=== PATIENT | male | born 1955 | race Caucasian/White ===

== ENCOUNTER → 2018-06-17 11:13 | Outpatient (CLI) | payer OTHER, SELFPAY ==
[2018-06-17 14:05] LABS: Absolute Lymphocyte Count 0.69 X10^3/ul (0.83-4.51); Absolute Neutrophil Count 12.1 X10^3/uL (2.0-7.7); Basophil# 0.01 X10^3/uL; Basophil% 0.1 % (0-1); Hematocrit 43.6 % (40-54); Hemoglobin 14.5 g/dl (13.0-16.5); Lymphocyte # 0.69 X10^3/ul (4.0); Lymphocyte % 5.2 % (19-41); Mean Corp Hgb Conc 33.3 g/gl (32-36); Mean Corpuscular Hgb 28.3 pg (27.0-32.0); Mean Corpuscular Volume 85.2 fL (80-94); Mean Platelet Vol. 11.3 fl (6.2-12.0); Monocyte# 0.36 X10^3/uL; Monocyte% 2.7 % (0-10); Neutrophil # 12.13 X10^3/uL (2.7-7.7); Neutrophil % 91.8 % (47-70); Platelet Count 271 K/mm3 (150-450); RBC Distribution Width CV 13.7 % (11.6-14.6); RBC Distribution Width SD 42.3 fl (35.1-43.9); Red Blood Count 5.12 M/mm3 (4.6-6.2); White Blood Count 13.2 K/mm3 (4.4-11.0)
[2018-06-17 14:16] LABS: AST(SGOT) 22 U/L (15-37); Alanine Aminotransfer ALT/SGPT 49 U/L (16-61); Albumin, Serum 3.9 g/dL (3.2-5.0); Alkaline Phosphatase 84 U/L (45-117); Anion Gap 12 (5-15); BUN 23 mg/dL (7-18); BUN/Creat Ratio 21.1 RATIO (10-20); Bilirubin, Direct 0.14 mg/dL (0.00-0.30); Calcium,Total 8.7 mg/dL (8.5-10.1); Chloride 99 mmol/L (98-107); Cholesterol 135 mg/dL (200); Creatinine, Serum 1.09 mg/dL (0.70-1.30); EST Glomerular Filtration Rate 73 mL/min (>60); Est Glom Filt Rate - Afr Amer 88 mL/min (>60); Globulin 3.6 g/dL (2.2-4.2); Glucose 359 mg/dL (74-106); High Density Lipoprotein 31 mg/dL; Potassium 4.2 mmol/L (3.5-5.1); Protein, Total 7.5 g/dL (6.4-8.2); Sodium Level 133 mmol/L (136-145); Triglycerides 86 mg/dL; Very Low Density Lipoprotein 17 mg/dL (5-40)
[2018-06-17 14:17] LABS: POSITIVE COUNT NO; POSITIVE DIFFERENTIAL NO; POSITIVE MORPHOLOGY NO
[2018-06-17 14:28] LABS: Microalbumin,Random Urine 6.9 mg/L (NO RANGE EST.); Microalbumin:Creatinine Ratio 14.9 mg/g CRE (<30 mg/g CRE)
[2018-06-17 22:00] LABS: Hemoglobin A1c 11.1 % (4.2-6.3)
[2018-06-23 11:34] LABS: Lead, Blood Adult 16+yrs 1 ug/dL (0-4)
== END ==
PROVIDERS: Family Provider Family Medicine; PCP Family Medicine; Visit Provider Family Medicine
DX: R91.1 Solitary pulmonary nodule (principal); E11.9 Type 2 diabetes mellitus without complications; Z77.011 Contact with and (suspected) exposure to lead
CPT/HCPCS: 36415; 71046; 80048; 80061; 80076; 82043; 82570; 83036; 83655; 85025

== ENCOUNTER 2018-11-03 08:51 | Outpatient (RCR) | payer OTHER, SELFPAY ==
--- NOTE | 2018-11-04 10:35 | HP.OTEVAL ---
Patient's Visit Information ELDER SIMPSON is a 63 year old M, referred to Occupational Therapy by Castro Lizarraga MD, with a diagnosis of disp fx of prox phalanx of left RF. Date of Evaluation: 11/03/18 Occupational Therapist: Yeni Roberto, OTR/L, CHT - Subjective Subjective: pt states he fell and broke his left RF before shimon and still has difficulty with end range stretch and strength- pt states his finger feels stiff or tight all the time- pt also states he is unable to get his wedding ring on left RF. - ROM PIP: left RF 98 right 98 DIP: left RF 55 right 65 - Strength Nutritionist Public Health: right 80# left 90# Lateral Pinch: right 18# left 18# Tripod Pinch: right 14 left 12# - Edema PIP: right RF 6.0 left 6.4 - Sensation Sensation Comments: denies - Hand/Wrist Evaluation Total Score of Pain & Functional Sections: 34 - Goals Goal:: PT will demo a increase in left RF by 10 degrees to increase composite/hook fist for use of left hand with ADLS and IADLS by d/c Goal:: pt will demo a decrease in left RF PIP edema by .5 for pt to ind. galileo wedding ring on without difficulty by d/c Goal:: pt will demo understanding of joint protection tamica. to use while performing IADLs and home mtg by d/c - Rehabilitation General Assessment: pt demo with edema of left RF limiting is ability to put his wedding ring on. Pt would benefit from skilled OT services 2x week for 2 weeks to ed. pt on edema control tamica. as well as end range stretching to decrease tightness of left RF. Rehabilitation Potential: Good - Anticipated Interventions Anticipated Interventions: A/AAROM/PROM, Strengthening, Edema Control, Triggerpoint Release, Modalities, Orthoses, Joint Protection/Energy Conservation - Visit Plan Frequency: 1-2x /Week Duration: 2 Weeks TEXT: Thank you for the opportunity to evaluate your patient. For Medicare and Medicare HMO plans, please review the plan of care and approve it. It will need to be FAXED BACK to us at [phone] for Medicare purposes. Please let me know if there are questions or concerns regarding this plan of care. Physician Signature: Date:
--- NOTE | 2018-11-09 15:45 | HP.OTDCSUM ---
HP - OT D/C Summary It has been my pleasure to treat ELDER SIMPSON under orders from Castro Lizarraga MD, for the diagnosis of disp fx of prox phalanx of left RF for a total of 1 visit(s). Please see the following information for a summary of their discharge status. - Overall Improvement % Improvement: 90 - Objective Objective/Function: pt attended 1 session following eval- pt called in to cancel remaining apts- states he is doing well and will cont with HEP. Pt D/C due to his request. - Goals Patient Goals: Regain Mobility, Decrease Pain, Decrease Swelling/Stiffness, Improve Fine Motor Skills, Use Hand/Wrist/Arm Normally Again, Be More Independent in ADLS Other: wear wedding ring Goal:: PT will demo a increase in left RF by 10 degrees to increase composite/hook fist for use of left hand with ADLS and IADLS by d/c Goal:: pt will demo a decrease in left RF PIP edema by .5 for pt to ind. galileo wedding ring on without difficulty by d/c Goal:: pt will demo understanding of joint protection tamica. to use while performing IADLs and home mtg by d/c - D/C Information If there are questions or concerns regarding this patient's occupational therapy, please fell free to call me at [phone]. Thank you for the referral of this patient. Sincerely, Yeni Roberto, OTR/L, CHT
--- OUTSIDE RECORDS SUMMARY | 2019-01-07 22:11 | XMS RPT_ITS ---
:1955 Author Organization OHIP Care Team Providers Name Role Phone UVALDO CASTELLANO (TEMITOPE) Referring Unavailable UVALDO CASTELLANO (TEMITOPE) Referring Unavailable Castro Lizarraga Attending Unavailable Castro Lizarraga Referring Unavailable Fela Adam Primary Care Unavailable Fela Adam Attending Unavailable Fela Adam Attending Unavailable Fela Adam Primary Care Unavailable PROBLEMS PROBLEMS DATE TYPE CONDITION / CODE ATTENDING STATUS SOURCE 09/14/2018 Active Unspecified NA Active [facility] injury of left [place] wrist, hand and Repository finger(s), initial encounter / S69.92XA(ICD-10) 06/21/2018 Unknown R91.1 - Solitary Fela Adam Active [facility] / R91.1(ICD-10) Hospital Repository 06/15/2018 Active Cough / NA Active [facility] R05(ICD-10) [facility] [place] Repository 01/01/2018 Active Unknown / NA Active [facility] UNK(Unknown) [facility] [place] Repository PROCEDURES PROCEDURES No Procedure Records FoundRESULTS RESULTS OT D/C SUMMARY Observed: 11/11/2018 Status: F Source: [place] 8:07 AM [facility] RE[facility] Occupational [facility] [address] [place] [address] / REHABILITATION SERVICES DISCHARGE SUMMARY MR#: [id number] Acct: [id number] Name: ELDER SIMPSON Rep #: [id number] : 1955 63 From: Yeni AKBAR/Stacey, JOURDAN Referring Dr.: Castro Lizarraga MD Status: REG RCR Eval Date: Discharge Date: HP - OT D/C Summary It has been my pleasure to treat ELDER SIMPSON under orders from Castro Lizarraga MD, for the diagnosis of disp fx of prox phalanx of left RF for a total of 1 visit(s). Please see the following information for a summary of their discharge status. - Overall Improvement % Improvement: 90 - Objective Objective/Function: pt attended 1 session following eval- pt called in to cancel remaining apts- states he is doing well and will cont with HEP. Pt D/C due to his request. - Goals Patient Goals: Regain Mobility, Decrease Pain, Decrease Swelling/Stiffness, Improve Fine Motor Skills, Use Hand/Wrist/Arm Normally Again, Be More Independent in ADLS Other: wear wedding ring Goal:: PT will demo a increase in left RF by 10 degrees to increase composite/hook fist for use of left hand with ADLS and IADLS by d/c Goal:: pt will demo a decrease in left RF PIP edema by .5 for pt to ind. galileo wedding ring on without difficulty by d/c Goal:: pt will demo understanding of joint protection tamica. to use while performing IADLs and home mtg by d/c - D/C Information If there are questions or concerns regarding this patient's occupational therapy, please fell free to call me at [phone]. Thank you for the referral of this patient. Sincerely, Yeni Roberto, SAYR/Stacey, CHT <Electronically signed by Yeni CEDEÑO CHT> 11/11/18 0807 CC: Fela Adam MD; Casrto Lizarraga MD MK Signed OT GENERAL EVALUATION Observed: 11/08/2018 Status: F Source: [place] 8:15 AM [facility] [address] [place] [address] / REHABILITATION SERVICES INITIAL EVALUATION MR#: [id number] Acct: [id number] Name: ELDER SIMPSON Rep #: [id number] : 1955 63 From: Yeni Roberto OTR/L, CHT Referring Dr.: Castro Lizarraga MD Status: REG RCR Insurance: [employer] Eval Date: SELF PAY INSURANCE Patient's Visit Information ELDER SIMPSON is a 63 year old M, referred to Occupational Therapy by Castro Lizarraga MD, with a diagnosis of disp fx of prox phalanx of left RF. Date of Evaluation: 11/03/18 Occupational Therapist: Yeni Roberto, OTR/L, CHT - Subjective Subjective: pt states he fell and broke his left RF before shimon and still has difficulty with end range stretch and strength- pt states his finger feels stiff or tight all the time- pt also states he is unable to get his wedding ring on left RF. - ROM PIP: left RF 98 right 98 DIP: left RF 55 right 65 - Strength Watch Train Assembler: right 80# left 90# Lateral Pinch: right 18# left 18# Tripod Pinch: right 14 left 12# - Edema PIP: right RF 6.0 left 6.4 - Sensation Sensation Comments: denies - Hand/Wrist Evaluation Total Score of Pain AND Functional Sections: 34 - Goals Goal:: PT will demo a increase in left RF by 10 degrees to increase composite/hook fist for use of left hand with ADLS and IADLS by d/c Goal:: pt will demo a decrease in left RF PIP edema by .5 for pt to ind. galileo wedding ring on without difficulty by d/c Goal:: pt will demo understanding of joint protection tamica. to use while performing IADLs and home mtg by d/c - Rehabilitation General Assessment: pt demo with edema of left RF limiting is ability to put his wedding ring on. Pt would benefit from skilled OT services 2x week for 2 weeks to ed. pt on edema control tamica. as well as end range stretching to decrease tightness of left RF. Rehabilitation Potential: Good - Anticipated Interventions Anticipated Interventions: A/AAROM/PROM, Strengthening, Edema Control, Triggerpoint Release, Modalities, Orthoses, Joint Protection/Energy Conservation - Visit Plan Frequency: 1-2x /Week Duration: 2 Weeks TEXT: Thank you for the opportunity to evaluate your patient. For Medicare and Medicare HMO plans, please review the plan of care and approve it. It will need to be FAXED BACK to us at [phone] for Medicare purposes. Please let me know if there are questions or concerns regarding this plan of care. Physician Signature: Date: <Electronically signed by Yeni CEDEÑO CHT> 11/08/18 0815 CC: Fela Adam MD; Castro Lizarraga MD MK Signed For Medicare only, by signing this I certify the plan of care. Physicians Signature Date PROGRESS Observed: 09/14/2018 Status: COMPLETED Source: [place] 1:15 PM [facility] [place] REPOSITORY O ID: [id number] Author: Uvaldo Castellano (Pa) Service: (none) Author Type: Physician Social Media Analyst Type: Progress Notes Filed: 09/14/2018 1:28 PM Note Text: Subjective HPI Patient presents with left ring finger injury. He states he had tripped yesterday and he went to catch himself and he hit his fifth digit. It's been bruised and swollen Sensor came in for evaluation. No numbness or tingling. No problems with the hands in the past. Review of Systems Musculoskeletal: Left ring finger injury All other systems reviewed and are negative. No past medical history on file. Current Outpatient Prescriptions: albuterol HFA (PROAIR HFA) 90 mcg/actuation inhaler Inhale 2 Puffs as instructed every 6 hours as needed. Disp: 1 Inhaler Rfl: 0 liraglutide (VICTOZA 2-SHARMIN) 0.6 mg/0.1 mL (18 mg/3 mL) pnij Inject subcutaneously once daily. Disp: Rfl: naproxen (NAPROSYN) 500 mg tablet Take 1 tablet by mouth twice daily with meals. Take with food. Disp: 30 tablet Rfl: 0 METFORMIN HCL (METFORMIN ORAL) Take by mouth. Disp: Rfl: SIMVASTATIN ORAL Take by mouth. Disp: Rfl: LISINOPRIL ORAL Take by mouth. Disp: Rfl: aspirin, enteric coated (ASPIRIN, ENTERIC COATED) 81 mg EC tablet Take 81 mg by mouth once daily. Disp: Rfl: benzonatate (TESSALON PERLES) 100 mg capsule Take 2 capsules by mouth three times daily as needed. (Patient not taking: Reported on 09/14/2018 ) Disp: 30 capsule Rfl: 0 No current facility-administered medications for this visit. No past surgical history on file. No family history on file. Social History Substance Use Topics - Smoking status: Never Smoker - Smokeless tobacco: Never Used - Alcohol use Not on file BP 130/82 Pulse 74 Temp 36.6 ?C (97.8 ?F) (Tympanic) Resp 16 Wt 98.9 kg (218 lb) Objective Physical Exam Constitutional: He is oriented to person, place, and time. Musculoskeletal: Exam of the left fourth digit reveals bruising and swelling to the proximal interphalangeal joint. He has limited range of motion due to pain. Normal distal sensation. No tenderness of the MCP. Neurological: He is alert and oriented to person, place, and time. Skin: Skin is warm and dry. Psychiatric: Affect and judgment normal. Nursing note and vitals reviewed. ASSESSMENT/PLAN: 1. Finger injury, left, initial encounter - ICD9: 959.5, ICD10: S69.92XA (primary diagnosis) - XR DIGIT GENERAL 3V FRONTAL/LAT/OBL LT 2. Closed avulsion fracture of middle phalanx of finger, initial encounter - ICD9: 816.01, ICD10: S62.629A Patient has an avulsion fracture of the middle phalanx of the left fourth digit. I did place him in an aluminum finger splint with vitaliy tape and instructed him to follow up with or so. He was scheduled for next week. Instructed to rest, ice, ibuprofen or Tylenol for pain. Patient's agreeable to this plan. - CONSULT TO ORTHOPAEDICS Uvaldo Castellano PA-C XR DIGIT 3V Observed: 09/14/2018 Status: F Source: [facility]/LAT/OBL 11:26 AM [facility] REPOSITORY * * *Final Report* * * DATE OF EXAM: Sep 14 2018 11:26AM WOX [id number] - XR DIGIT 3V FRONTAL/LAT/OBL LT / PROCEDURE REASON: Finger injury, left, initial encounter * * * * Physician Interpretation * * * * Indication: Left hand pain after fall Comparison: None 3 views of the fourth digit of the left hand are obtained. There is normal architecture mineralization of bone. There is a small bone fragment at the palmar base of the middle phalanx of the left fourth digit which may represent a fracture. There is a tiny soft tissue calcification posterior to the PIP joint. There is no dislocation. Impression: Small bone fragment at the base of the middle phalanx of the left fourth digit which may represent a fracture Donor Relations Associate: PSCB Transcribe Date/Time: Sep 14 2018 12:00P Dictated by : CAVLIN BAILEY MD This examination was interpreted and the report reviewed and electronically signed by: CALVIN BAILEY MD on Sep 14 2018 12:03PM EST [id number] PROGRESS Observed: 09/14/2018 Status: COMPLETED Source: [place] 11:20 AM [facility] REPOSITORY HNO ID: [id number] Author: Francie Ibarra (Rt) Bruno Valladares Service: (none) Author Type: Aquatic Laborer Type: Progress Notes Filed: 09/14/2018 11:26 AM Note Text: Radiology Service Progress Note PATIENT NAME: Elder Simpson DATE OF SERVICE: September 14, 2018 TIME: 11:20 AM PATIENT IDENTITY VERIFICATION COMPLETED USING TWO (2) METHODS: Patient confirmed name verbally and Date of . PATIENT GENDER DATA: Male PATIENT RELEVANT IMPLANT DATA REVIEWED: Not Applicable RADIOLOGY DEPARTMENT: General X-ray: Exam(s) Completed: Upper Extremity X-Ray(s): Fingers/Thumb, left : PERIPHERAL IV DATA: Not applicable SIGNED BY: RT Leander September 14, 2018 11:20 AM CNOV Observed: 09/14/2018 Status: COMPLETED Source: [place] 11:00 AM [facility] REPOSITORY Office Visit (UCWSTR) ELDER SIMPSON ([id number]) 1955 Date Time Provider Department 09/14/18 11:00 AM UVALDO CASTELLANO) [facility] During your visit today, we recorded the following information about you: Temperature Pulse Respiration Blood pressure 97.8 degrees 74/minute 16/minute 130/82 Weight 98.9 kg Uvaldo Castellano PA-C 09/14/2018 1:28 PM Signed Subjective HPI Patient presents with left ring finger injury. He states he had tripped yesterday and he went to catch himself and he hit his fifth digit. It's been bruised and swollen Sensor came in for evaluation. No numbness or tingling. No problems with the hands in the past. Review of Systems Musculoskeletal: Left ring finger injury All other systems reviewed and are negative. No past medical history on file. Current Outpatient Prescriptions: albuterol HFA (PROAIR HFA) 90 mcg/actuation inhaler Inhale 2 Puffs as instructed every 6 hours as needed. Disp: 1 Inhaler Rfl: 0 liraglutide (VICTOZA 2-SHARMIN) 0.6 mg/0.1 mL (18 mg/3 mL) pnij Inject subcutaneously once daily. Disp: Rfl: naproxen (NAPROSYN) 500 mg tablet Take 1 tablet by mouth twice daily with meals. Take with food. Disp: 30 tablet Rfl: 0 METFORMIN HCL (METFORMIN ORAL) Take by mouth. Disp: Rfl: SIMVASTATIN ORAL Take by mouth. Disp: Rfl: LISINOPRIL ORAL Take by mouth. Disp: Rfl: aspirin, enteric coated (ASPIRIN, ENTERIC COATED) 81 mg EC tablet Take 81 mg by mouth once daily. Disp: Rfl: benzonatate (TESSALON PERLES) 100 mg capsule Take 2 capsules by mouth three times daily as needed. (Patient not taking: Reported on 09/14/2018 ) Disp: 30 capsule Rfl: 0 No current facility-administered medications for this visit. No past surgical history on file. No family history on file. Social History Substance Use Topics - Smoking status: Never Smoker - Smokeless tobacco: Never Used - Alcohol use Not on file BP 130/82 Pulse 74 Temp 36.6 ?C (97.8 ?F) (Tympanic) Resp 16 Wt 98.9 kg (218 lb) Objective Physical Exam Constitutional: He is oriented to person, place, and time. Musculoskeletal: Exam of the left fourth digit reveals bruising and swelling to the proximal interphalangeal joint. He has limited range of motion due to pain. Normal distal sensation. No tenderness of the MCP. Neurological: He is alert and oriented to person, place, and time. Skin: Skin is warm and dry. Psychiatric: Affect and judgment normal. Nursing note and vitals reviewed. ASSESSMENT/PLAN: 1. Finger injury, left, initial encounter - ICD9: 959.5, ICD10: S69.92XA (primary diagnosis) - XR DIGIT GENERAL 3V FRONTAL/LAT/OBL LT 2. Closed avulsion fracture of middle phalanx of finger, initial encounter - ICD9: 816.01, ICD10: S62.629A Patient has an avulsion fracture of the middle phalanx of the left fourth digit. I did place him in an aluminum finger splint with vitaliy tape and instructed him to follow up with or so. He was scheduled for next week. Instructed to rest, ice, ibuprofen or Tylenol for pain. Patient's agreeable to this plan. - CONSULT TO ORTHOPAEDICS Uvaldo Castellano PA-C Referring Provider: SELF [200] Allergies As of Date: 09/14/2018 (No Known Allergies) Date Reviewed: 09/14/2018 Reviewed by: Maria Luisa Rogers Ma - Fully Assessed Reason for Visit: Finger Injury [2772] Cmt: left ring finger pain after fall x yesterday Primary Visit Diagnosis:Finger injury, left, initial encounter [S69.92XA] Other Visit Diagnosis:Closed avulsion fracture of middle phalanx of finger, initial encounter [S62.629A] Order(s):XR DIGIT GENERAL 3V FRONTAL/LAT/OBL LT [8140730] Order #: [id number] FUTURE CONSULT TO ORTHOPAEDICS [9026] Order #: [id number]: 1 Prescriptions as of 09/14/2018 Sig: ALBUTEROL SULFATE HFA 90 MCG/* Inhale 2 Puffs as instructed * LIRAGLUTIDE 0.6 MG/0.1 ML (18* Inject subcutaneously once d* NAPROXEN 500 MG TABLET Take 1 tablet by mouth twice * METFORMIN ORAL Take by mouth. SIMVASTATIN ORAL Take by mouth. LISINOPRIL ORAL Take by mouth. ASPIRIN 81 MG TABLET,DELAYED * Take 81 mg by mouth once pietro* BENZONATATE 100 MG CAPSULE Take 2 capsules by mouth thre* Patient not taking: Reported on 09/14/2018 Problem List As Of Date: 09/14/2018 (None) Encounter Status:Closed by UVALDO CASTELLANO PA-C on 09/14/18 CHEST PA AND LATERAL Observed: 06/17/2018 Status: F Source: [place] 11:25 AM [facility] RE[facility]IT[facility] Imaging Services [address] [place] [address] Chest PA and Lateral MR#: [id number] Acct: [id number] Name: ELDER SIMPSON Rep #: [id number] : 1955 M 62 From: Hair Costello MD PCP: Fela Adam MD Status: REG CLI Study: Chest PA and Lateral Date of Exam: 06/17/18 Exam# [id number] Ordering Dr: Fela Adam MD STUDY: X-RAY CHEST REASON FOR EXAM: Male, 62 years old. Cough times one to 2 weeks TECHNIQUE: PA and lateral views of the chest. COMPARISON: Prior study of 08/20/2015 FINDINGS: There are several tiny old calcified granulomas of the left midlung field. There is no demonstrated pleural abnormality. Normal size heart. Normal mediastinum and edita. Normal visualized pulmonary arteries. Normal visualized aortic arch and descending thoracic aorta. Normal visualized thoracic spine. Normal visualized ribs, clavicles, and shoulders. There is no demonstrated abnormality of the visualized soft tissue structures of the upper abdomen. RAD/Chest PA and Lateral IMPRESSION: Several tiny old calcified granulomas of the left mid lung field, stable in the interval. No acute cardiopulmonary disease process is seen. Electronically Signed: Hair Costello MD at 17:04 EDT , Service support , CC: Fela Adam MD Donor Relations Associate: Signed BASIC METABOLIC Collected: 06/17/2018 Status: F Source: [place] PROFILE (BMP) 11:16 AM [facility] REPOSITORY TYPE CODE TESTS RESULT OUT OF RANGE REFERENCE UNITS LAB L501.0100 74-106 mg/dL High GLU 359 Result Comment: Glucose result greater than or equal to 200 mg/dL suggests DIABETES MELLITUS per A.D.A. criteria. Please note revised GLUCOSE reference range effective 2017. LAB L501.1000 7-18 mg/dL High BUN 23 LAB L501.1100 0.70-1.30 mg/dL Normal CREAT,SERUM 1.09 Result Comment: The validity of the calculated GFR AND GFRAA in patients over 70 years has not been determined. Clinical correlation is essential. LAB L501.1110 >60 mL/min Normal EST GFR 73 Result Comment: Non- GFR Calc LAB L501.1115 >60 mL/min Normal EST GFR - AA 88 Result Comment: GFR Calc LAB L501.1300 10-20 RATIO High BUN/CRE 21.1 LAB L501.2200 8.5-10.1 mg/dL CA Normal 8.7 LAB L501.5300 136-145 mmol/L Low NA 133 LAB L501.5600 3.5-5.1 mmol/L K Normal 4.2 LAB L501.5900 98-107 mmol/L CL Normal 99 LAB L501.6100 21.0-32.0 mmol/L Normal CO2 22.0 LAB L501.6200 5-15 Normal GAP 12 Performed By: #### L500.2500, L500.3400, L500.4100 #### [facility] [address] [place], [place], [address] LIVER PROFILE Collected: 06/17/2018 Status: F Source: [place] 11:16 AM [facility] REPOSITORY TYPE CODE TESTS RESULT OUT OF RANGE REFERENCE UNITS LAB L501.1500 6.4-8.2 g/dL Normal T PROT 7.5 LAB L501.1800 3.2-5.0 g/dL Normal ALB 3.9 LAB L501.1950 2.2-4.2 g/dL Normal GLOB 3.6 LAB L501.4100 15-37 U/L Normal AST 22 LAB L501.4305 45-117 U/L Normal ALK P 84 LAB L501.4405 16-61 U/L Normal ALT 49 LAB L501.4600 0.20-1.00 mg/dL Normal T BILI 0.70 LAB L501.4700 0.00-0.30 mg/dL Normal D BILI 0.14 Performed By: #### L500.2500, L500.3400, L500.4100 #### [facility] [address] [place], [address] LIPID PROFILE Collected: 06/17/2018 Status: F Source: [place] 11:16 AM [facility] REPOSITORY TYPE CODE TESTS RESULT OUT OF RANGE REFERENCE UNITS LAB L501.4900 200 mg/dL Normal CHOL 135 Result Comment: <200 mg/dL Desirable 200-240 mg/dL Borderline >240 mg/dL High Risk LAB L501.5000 mg/dL Normal TRIG 86 Result Comment: The drugs N-Acetylcysteine and Metamizole may falsely depress this assay. Serum Triglycerides Reference Interval Normal <150 mg/dL Borderline high 150 - 199 mg/dL High 200 - 499 mg/dL Very High > or = 500 mg/dL LAB L501.6400 mg/dL Low HDL 31 Result Comment: The drugs N-Acetylcysteine and Metamizole may falsely depress this assay. Reference Range HDL <40 mg/dL Low HDL Cholesterol HDL >or= 60 mg/dL High HDL Cholesterol LAB L501.6500 0-130 mg/dL Normal LDL 87 LAB L501.6600 5-40 mg/dL Normal VLDL 17 Performed By: #### L500.2500, L500.3400, L500.4100 #### [facility] [address] [place], [address] CBC W/DIFF, AUTOMATED Collected: 06/17/2018 Status: F Source: [place] 11:16 AM [facility] REPOSITORY TYPE CODE TESTS RESULT OUT OF RANGE REFERENCE UNITS LAB L100.1000 4.4-11.0 K/mm3 High WBC 13.2 LAB L100.1200 4.6-6.2 M/mm3 Normal RBC 5.12 LAB L100.1300 13.0-16.5 g/dl Normal HGB 14.5 LAB L100.1400 40-54 % Normal HCT 43.6 LAB L100.1500 80-94 fL Normal MCV 85.2 LAB L100.1600 27.0-32.0 pg Normal MCH 28.3 LAB L100.1700 32-36 g/gl Normal MCHC 33.3 LAB L100.1810 11.6-14.6 % Normal RDW CV 13.7 LAB L100.1820 35.1-43.9 fl Normal RDW SD 42.3 LAB L100.1900 150-450 K/mm3 Normal PLT 271 LAB L100.2000 6.2-12.0 fl Normal MPV 11.3 LAB L100.2100 47-70 % High NEUT% 91.8 LAB L100.2200 19-41 % Low LY% 5.2 LAB L100.2300 0-10 % Normal MONO% 2.7 LAB L100.2400 0-5 % Normal EO% 0.0 LAB L100.2500 0-1 % Normal BASO% 0.1 LAB L100.2550 0.0-0.9 % Normal IM GRAN % 0.200 Result Comment: IG% - Immature Granulocytes (promyelocytes, myelocytes and metamyelocytes) > 1% indicates that a LEFT SHIFT is Present. LAB L100.2620 2.0-7.7 X10 3/uL High Absolute Neut 12.1 LAB L100.2720 0.83-4.51 X10 3/ul Low Absolute Lymph 0.69 Performed By: #### L100.0100 #### [facility] [address] [place], [address] MICROALB:CREAT Collected: 06/17/2018 Status: F [facility]16 AM [facility] RE[facility] TYPE CODE TESTS RESULT OUT OF RANGE REFERENCE UNITS LAB L501.1200 NO RANGE EST. mg/dL Normal UR CREAT 46.60 LAB L502.0500 NO RANGE EST. mg/L Normal 6.9 MICROALBUMIN ,UR LAB L502.0600 <30 mg/g CRE mg/g CRE Normal 14.9 MALB:CREAT Performed By: #### L502.0250 #### [facility] [address] [place], [address] HEMOGLOBIN A1C Collected: 06/17/2018 Status: F Source: [place] 11:16 AM [facility] REPOSITORY TYPE CODE TESTS RESULT OUT OF RANGE REFERENCE UNITS LAB L501.9985 4.2-6.3 % High HGB A1C 11.1 Performed By: #### L501.9985 #### [facility] [address] [place], [address] LEAD, BLOOD ADULT Collected: 06/17/2018 Status: F Source: [place] 16+YRS 11:16 AM [facility] REPOSITORY TYPE CODE TESTS RESULT OUT OF RANGE REFERENCE UNITS LAB L3100.6450 0-4 ug/dL Normal LEAD 1 *Form Result Comment: Analysis by inductively coupled plasma/mass spectrometry (ICP/MS) Environmental Exposure: WHO Recommendation <20 Occupational Exposure: OSHA Lead Std 40 JUDY 30 Detection Limit = 1 Please note reference interval change This test was developed and its performance characteristics determined by [facility]. It has not been cleared or approved by the Food and Drug Administration. Performed at: [address] [id number] [employer]: Néstor Avendaño PhD, Phone: [phone] Performed By: #### L3100.6450 #### [facility] (refer to report for specific site) refer to report for address and phone number PROGRESS Observed: 06/15/2018 Status: COMPLETED Source: [place] 6:09 PM [facility] REPOS[facility] HNO ID: [id number] Author: Uvaldo Castellano (Pa) Service: (none) Author Type: Physician Social Media Analyst Type: Progress Notes Filed: 06/15/2018 6:26 PM Note Text: Subjective HPI Pt presents with cough and chest congestion for 5 days. He denies fever at home. He has had chills and body aches. He denies hx of smoking or asthma/COPD. He states his grandkids recently had hand foot and mouth disease but he denies any rash. No shortness of breath. He has pain in his ribs when he coughs. No hx of PE or dvt. No leg pain or swelling. No pain with breathing. He did travel to [place] 3 weeks ago. Review of Systems Constitutional: Positive for chills and malaise/fatigue. HENT: Positive for congestion. Respiratory: Positive for cough. All other systems reviewed and are negative. No past medical history on file. Current Outpatient Prescriptions: liraglutide (VICTOZA 2-SHARMIN) 0.6 mg/0.1 mL (18 mg/3 mL) pnij Inject subcutaneously once daily. Disp: Rfl: naproxen (NAPROSYN) 500 mg tablet Take 1 tablet by mouth twice daily with meals. Take with food. Disp: 30 tablet Rfl: 0 METFORMIN HCL (METFORMIN ORAL) Take by mouth. Disp: Rfl: SIMVASTATIN ORAL Take by mouth. Disp: Rfl: LISINOPRIL ORAL Take by mouth. Disp: Rfl: aspirin, enteric coated (ASPIRIN, ENTERIC COATED) 81 mg EC tablet Take 81 mg by mouth once daily. Disp: Rfl: predniSONE (DELTASONE) 20 mg tablet Take 1 tablet by mouth twice daily for 5 days. Disp: 10 tablet Rfl: 0 benzonatate (TESSALON PERLES) 100 mg capsule Take 2 capsules by mouth three times daily as needed. Disp: 30 capsule Rfl: 0 albuterol HFA (PROAIR HFA) 90 mcg/actuation inhaler Inhale 2 Puffs as instructed every 6 hours as needed. Disp: 1 Inhaler Rfl: 0 No current facility-administered medications for this visit. No past surgical history on file. No family history on file. Social History Substance Use Topics - Smoking status: Never Smoker - Smokeless tobacco: Never Used - Alcohol use Not on file BP 140/80 Pulse 102 Temp 37.1 ?C (98.7 ?F) (Left Tympanic) Resp 16 Wt 94.8 kg (209 lb) SpO2 93% Objective Physical Exam Constitutional: He is oriented to person, place, and time and well-developed, well-nourished, and in no distress. HENT: Head: Normocephalic and atraumatic. Right Ear: Tympanic membrane, external ear and ear canal normal. Left Ear: Tympanic membrane, external ear and ear canal normal. Nose: Rhinorrhea present. Mouth/Throat: Uvula is midline, oropharynx is clear and moist and mucous membranes are normal. Neck: Normal range of motion. Neck supple. Cardiovascular: Normal rate, regular rhythm and normal heart sounds. Pulmonary/Chest: Effort normal and breath sounds normal. Lungs are clear. Pt in no respiratory distress. Lymphadenopathy: He has no cervical adenopathy. Neurological: He is alert and oriented to person, place, and time. Skin: Skin is warm and dry. Psychiatric: Affect and judgment normal. Nursing note and vitals reviewed. ASSESSMENT/PLAN: 1. Viral bronchitis - ICD9: 466.0, ICD10: J20.8 (primary diagnosis) Pt cxr negative. He received a breathing treatment and pulse ox was 94% after. He is in no distress. I will treat with prednisone and tessalon with albuterol mdi. Discussed is he develops chest pain, shortness of breath, or other worsening symptoms needs to be seen at the ED. Pt understood this. 2. Nodule of left lung - ICD9: 793.11, ICD10: R91.1 I did tell pt there were left midlung nodules and to follow up for observation by PCP. 3. Cough - ICD9: 786.2, ICD10: R05 - XR CHEST 2V FRONTAL/LAT - ALBUTEROL SULFATE 2.5 MG/3 ML (0.083 %) SOLUTION FOR NEBULIZATION Uvaldo Castellano PA-C XR CHEST 2V FRONTAL/LAT Observed: 06/15/2018 Status: F Source: [place] 3:29 PM [facility] REPOSITORY * * *Final Report* * * DATE OF EXAM: Jun 15 2018 3:29PM WOX [id number] - XR CHEST 2V FRONTAL/LAT / PROCEDURE REASON: Cough * * * * Physician Interpretation * * * * EXAMINATION: CHEST RADIOGRAPH (2 VIEW FRONTAL and LATERAL) CLINICAL HISTORY: Cough MQ: XC2_5 Comparison: None. RESULT: Lines, tubes, and devices: None. Lungs and pleura: No consolidation. There are a few nodules, likely calcified, seen in the left midlung. No lung mass. No pleural effusion. Cardiomediastinal silhouette: Normal cardiomediastinal silhouette. Other: None. IMPRESSION: A few tiny nodules likely calcified nodules in the left midlung. No consolidative opacities seen. Donor Relations Associate: PSCB Transcribe Date/Time: Jun 15 2018 3:35P Dictated by : LOUIS THOMPSON MD This examination was interpreted and the report reviewed and electronically signed by: LOUIS THOMPSON MD on Jun 15 2018 3:37PM EST [id number] PROGRESS Observed: 06/15/2018 Status: COMPLETED Source: [place] 3:21 PM [facility] REPOSITORY HNO ID: [id number] Author: Fernanda Lundberg (Rt) Bruno Villalba Service: (none) Author Type: Aquatic Laborer Type: Progress Notes Filed: 06/15/2018 3:29 PM Note Text: Radiology Service Progress Note PATIENT NAME: Elder Simpson DATE OF SERVICE: June 15, 2018 TIME: 3:21 PM PATIENT IDENTITY VERIFICATION COMPLETED USING TWO (2) METHODS: Patient confirmed name verbally and Date of . PATIENT GENDER DATA: Male PATIENT RELEVANT IMPLANT DATA REVIEWED: Not Applicable RADIOLOGY DEPARTMENT: General X-ray: Exam(s) Completed: Chest X-Ray PERIPHERAL IV DATA: Not applicable SIGNED BY: RT Hu June 15, 2018 3:21 PM CNOV Observed: 06/15/2018 Status: COMPLETED Source: [place] 2:45 PM [facility] REPOSITORY Office Visit (WSTR) ELDER SIMPSON ([id number]) 1955 M Date Time Provider Department 06/15/18 2:45 PM UVALDO CASTELLANO ([place]) WSTR During your visit today, we recorded the following information about you: Temperature Pulse Respiration Blood pressure 98.7 degrees 102/minute 16/minute 140/80 Weight 94.8 kg Maria Luisa Rogers Ma 06/15/2018 3:53 PM Signed 2.5 solution aerosol treatment given per doctor's orders. Prior to treatment O2 Sat is 93%. Treatment completed. O2 sat is 94%. Tolerated well. Maria Luisa Castellano PA-C 06/15/2018 6:26 PM Signed Subjective HPI Pt presents with cough and chest congestion for 5 days. He denies fever at home. He has had chills and body aches. He denies hx of smoking or asthma/COPD. He states his grandkids recently had hand foot and mouth disease but he denies any rash. No shortness of breath. He has pain in his ribs when he coughs. No hx of PE or dvt. No leg pain or swelling. No pain with breathing. He did travel to [place] 3 weeks ago. Review of Systems Constitutional: Positive for chills and malaise/fatigue. HENT: Positive for congestion. Respiratory: Positive for cough. All other systems reviewed and are negative. No past medical history on file. Current Outpatient Prescriptions: liraglutide (VICTOZA 2-SHARMIN) 0.6 mg/0.1 mL (18 mg/3 mL) pnij Inject subcutaneously once daily. Disp: Rfl: naproxen (NAPROSYN) 500 mg tablet Take 1 tablet by mouth twice daily with meals. Take with food. Disp: 30 tablet Rfl: 0 METFORMIN HCL (METFORMIN ORAL) Take by mouth. Disp: Rfl: SIMVASTATIN ORAL Take by mouth. Disp: Rfl: LISINOPRIL ORAL Take by mouth. Disp: Rfl: aspirin, enteric coated (ASPIRIN, ENTERIC COATED) 81 mg EC tablet Take 81 mg by mouth once daily. Disp: Rfl: predniSONE (DELTASONE) 20 mg tablet Take 1 tablet by mouth twice daily for 5 days. Disp: 10 tablet Rfl: 0 benzonatate (TESSALON PERLES) 100 mg capsule Take 2 capsules by mouth three times daily as needed. Disp: 30 capsule Rfl: 0 albuterol HFA (PROAIR HFA) 90 mcg/actuation inhaler Inhale 2 Puffs as instructed every 6 hours as needed. Disp: 1 Inhaler Rfl: 0 No current facility-administered medications for this visit. No past surgical history on file. No family history on file. Social History Substance Use Topics - Smoking status: Never Smoker - Smokeless tobacco: Never Used - Alcohol use Not on file BP 140/80 Pulse 102 Temp 37.1 ?C (98.7 ?F) (Left Tympanic) Resp 16 Wt 94.8 kg (209 lb) SpO2 93% Objective Physical Exam Constitutional: He is oriented to person, place, and time and well-developed, well-nourished, and in no distress. HENT: Head: Normocephalic and atraumatic. Right Ear: Tympanic membrane, external ear and ear canal normal. Left Ear: Tympanic membrane, external ear and ear canal normal. Nose: Rhinorrhea present. Mouth/Throat: Uvula is midline, oropharynx is clear and moist and mucous membranes are normal. Neck: Normal range of motion. Neck supple. Cardiovascular: Normal rate, regular rhythm and normal heart sounds. Pulmonary/Chest: Effort normal and breath sounds normal. Lungs are clear. Pt in no respiratory distress. Lymphadenopathy: He has no cervical adenopathy. Neurological: He is alert and oriented to person, place, and time. Skin: Skin is warm and dry. Psychiatric: Affect and judgment normal. Nursing note and vitals reviewed. ASSESSMENT/PLAN: 1. Viral bronchitis - ICD9: 466.0, ICD10: J20.8 (primary diagnosis) Pt cxr negative. He received a breathing treatment and pulse ox was 94% after. He is in no distress. I will treat with prednisone and tessalon with albuterol mdi. Discussed is he develops chest pain, shortness of breath, or other worsening symptoms needs to be seen at the ED. Pt understood this. 2. Nodule of left lung - ICD9: 793.11, ICD10: R91.1 I did tell pt there were left midlung nodules and to follow up for observation by PCP. 3. Cough - ICD9: 786.2, ICD10: R05 - XR CHEST 2V FRONTAL/LAT - ALBUTEROL SULFATE 2.5 MG/3 ML (0.083 %) SOLUTION FOR NEBULIZATION Uvaldo Castellano PA-C Referring Provider: SELF [200] Allergies As of Date: 06/15/2018 (No Known Allergies) Date Reviewed: 06/15/2018 Reviewed by: Jenifer Cervantes Ma - Fully Assessed Reason for Visit: Cough [28] Chest Congestion [236] Primary Visit Diagnosis:Viral bronchitis [J20.8] Other Visit Diagnoses:Nodule of left lung [R91.1] Cough [R05] Order(s):XR CHEST 2V FRONTAL/LAT [[id number]] Order #: [id number] FUTURE [] albuterol 2.5 mg /3 mL (0.083 %) 2.5 mg (PROVENTIL)Disp: Rfl: predniSONE (DELTASONE) 20 mg tabletTake 1 tablet by mouth twice daily for 5 days.Disp: 10 tabletRfl: 0 benzonatate (TESSALON PERLES) 100 mg capsuleTake 2 capsules by mouth three times daily as needed.Disp: 30 capsuleRfl: 0 albuterol HFA (PROAIR HFA) 90 mcg/actuation inhalerInhale 2 Puffs as instructed every 6 hours as needed.Disp: 1 InhalerRfl: 0 Prescriptions as of 06/15/2018 Sig: LIRAGLUTIDE 0.6 MG/0.1 ML (18* Inject subcutaneously once d* NAPROXEN 500 MG TABLET Take 1 tablet by mouth twice * METFORMIN ORAL Take by mouth. SIMVASTATIN ORAL Take by mouth. LISINOPRIL ORAL Take by mouth. ASPIRIN 81 MG TABLET,DELAYED * Take 81 mg by mouth once pietro* PREDNISONE 20 MG TABLET Take 1 tablet by mouth twice * BENZONATATE 100 MG CAPSULE Take 2 capsules by mouth thre* ALBUTEROL SULFATE HFA 90 MCG/* Inhale 2 Puffs as instructed * Problem List As Of Date: 06/15/2018 (None) Visit Notes: >> Maria Luisa Rogers Ma WedJun 15, 2018 3:52 PM Status: Signed 2.5 solution aerosol treatment given per doctor's orders. Prior to treatment O2 Sat is 93%. Treatment completed. O2 sat is 94%. Tolerated well. Maria Luisa Rogers Ma Prescriptions ordered this encounter Disp Refills Start End ALBUTEROL SULFATE 2.5 MG/3 ML (0.083* 06/15/2018 06/15/2018 Route: INHALATION PREDNISONE 20 MG TABLET 10 t* 0 06/15/2018 06/20/2018 Route: ORAL Sig: Take 1 tablet by mouth twice daily for 5 days. BENZONATATE 100 MG CAPSULE 30 c* 0 06/15/2018 Route: ORAL Sig: Take 2 capsules by mouth three times daily as needed. ALBUTEROL SULFATE HFA 90 MCG/ACTUATI* 1 In* 0 06/15/2018 Route: INHALATION Sig: Inhale 2 Puffs as instructed every 6 hours as needed. Encounter Status:Closed by UVALDO CASTELLANO PA-C on 06/15/18 LIPID PROFILE Collected: 03/29/2018 Status: F Source: [place] 7:30 AM [facility] REPOSITORY TYPE CODE TESTS RESULT OUT OF RANGE REFERENCE UNITS LAB L501.4900 200 mg/dL Normal CHOL 124 Result Comment: <200 mg/dL Desirable 200-240 mg/dL Borderline >240 mg/dL High Risk LAB L501.5000 mg/dL Normal TRIG 72 Result Comment: The drugs N-Acetylcysteine and Metamizole may falsely depress this assay. Serum Triglycerides Reference Interval Normal <150 mg/dL Borderline high 150 - 199 mg/dL High 200 - 499 mg/dL Very High > or = 500 mg/dL LAB L501.6400 mg/dL Normal HDL 40 Result Comment: The drugs N-Acetylcysteine and Metamizole may falsely depress this assay. Reference Range HDL <40 mg/dL Low HDL Cholesterol HDL >or= 60 mg/dL High HDL Cholesterol LAB L501.6500 0-130 mg/dL Normal LDL 70 LAB L501.6600 5-40 mg/dL Normal VLDL 14 Performed By: #### L500.4100, L501.0100, L501.9910 #### [facility] [address] [place], [place], [address] GLUCOSE Collected: 03/29/2018 Status: F Source: [place] 7:30 AM [facility] REPOSITORY TYPE CODE TESTS RESULT OUT OF RANGE REFERENCE UNITS LAB L501.0100 74-106 mg/dL High GLU 255 Result Comment: Glucose result greater than or equal to 200 mg/dL suggests DIABETES MELLITUS per A.D.A. criteria. Please note revised GLUCOSE reference range effective 2017. Performed By: #### L500.4100, L501.0100, L501.9910 #### [facility] [address] [place], [place], [address] PSA,TOTAL - ANNUAL Collected: 03/29/2018 Status: F Source: [place] SCREEN 7:30 AM [facility] REPOSITORY TYPE CODE TESTS RESULT OUT OF RANGE REFERENCE UNITS LAB L501.9910 0.00-4.00 ng/mL Normal PSA,TOT 0.44 SCREEN Result Comment: This test was performed using the TPSA assay method for the [employer] chemistry system. Values obtained with different assay methods cannot be used interchangably. When changing PSA assays in the course of monitoring a patient, additional sequential testing should be carried out to confirm baseline values. Performed By: #### L500.4100, L501.0100, L501.9910 #### [facility] [place], [address] PROGRESS Observed: 02/12/2018 Status: COMPLETED Source: [place] 9:19 AM [facility] [place] REPOSITORY HNO ID: [id number] Author: Faina Cortes) Jennifer Service: (none) Author Type: Nurse Practitioner Type: Progress Notes Filed: 02/12/2018 9:32 AM Note Text: Subjective The history is provided by the patient. No restaurant team member was used. Cough Associated symptoms include sore throat. Pertinent negatives include no chest pain, no chills, no ear pain, no headaches, no myalgias, no shortness of breath and no wheezing. Sore Throat Associated symptoms include congestion and coughing. Pertinent negatives include no ear pain, headaches or shortness of breath. HPI Elder Simpson is a 62 year old male who presents today for CC of cough congestion. This started about 10 days ago. He is also having post nasal drainage, sore throat, and sinus pressure and congestion. Symptoms are worsened by leaning forward, lying down. He has tried nyquil. Risk factors family members PMH sinusitis. Temp 36.8 ?C (98.2 ?F) (Left Tympanic) Resp 16 Wt 96.2 kg (212 lb) SpO2 96% ALLERGIES No Known Allergies There is no problem list on file for this patient. No family history on file. Social History Marital status: Spouse name: Years of education: Number of children: Social History Main Topics Smoking status: Never Smoker Smokeless tobacco: Never Used Review of Systems Constitutional: Negative. Negative for chills, fever and malaise/fatigue. HENT: Positive for congestion, sinus pain and sore throat. Negative for ear pain. Post nasal drainage Respiratory: Positive for cough. Negative for sputum production, shortness of breath and wheezing. Cardiovascular: Negative for chest pain. Musculoskeletal: Negative for myalgias. Skin: Negative for rash. Neurological: Negative for headaches. Objective Physical Exam Constitutional: He is well-developed, well-nourished, and in no distress. HENT: Head: Normocephalic and atraumatic. Right Ear: External ear and ear canal normal. Tympanic membrane is bulging. Tympanic membrane is not injected, not erythematous and not retracted. A middle ear effusion (serous) is present. Left Ear: External ear and ear canal normal. Tympanic membrane is bulging. Tympanic membrane is not injected, not erythematous and not retracted. A middle ear effusion (serous) is present. Nose: Mucosal edema and rhinorrhea present. Right sinus exhibits maxillary sinus tenderness and frontal sinus tenderness. Left sinus exhibits maxillary sinus tenderness and frontal sinus tenderness. Mouth/Throat: Uvula is midline and mucous membranes are normal. Posterior oropharyngeal edema and posterior oropharyngeal erythema present. No oropharyngeal exudate or tonsillar abscesses. Eyes: Conjunctivae and EOM are normal. Pupils are equal, round, and reactive to light. Neck: Normal range of motion. Cardiovascular: Normal rate, regular rhythm and normal heart sounds. Pulmonary/Chest: Effort normal and breath sounds normal. No respiratory distress. He has no decreased breath sounds. He has no wheezes. He has no rhonchi. He has no rales. Lymphadenopathy: Head (right side): No submental, no submandibular, no tonsillar, no preauricular and no posterior auricular adenopathy present. Head (left side): No submental, no submandibular, no tonsillar, no preauricular and no posterior auricular adenopathy present. Right cervical: No superficial cervical and no posterior cervical adenopathy present. Left cervical: No superficial cervical and no posterior cervical adenopathy present. Right: No supraclavicular adenopathy present. Left: No supraclavicular adenopathy present. Skin: Skin is warm and dry. Psychiatric: Affect normal. Nursing note and vitals reviewed. ASSESSMENT/PLAN: 1. Acute non-recurrent pansinusitis - ICD9: 461.8, ICD10: J01.40 - Will begin treatment with Augmentin 875 mg PO BID for 10 days - The patient should also be given warm salt water gargles, throat lozenges and/or OTC throat spray as needed for the first 5- 7 days of treatment. - Supportive care with plenty of fluids, rest, and analgesia prn. - Follow up in one week if symptoms persist or worsen. - AMOXICILLIN 875 MG-POTASSIUM CLAVULANATE 125 MG TABLET -Increase fluid intake. Try to drink at least 8 glasses of non caffeinated fluids daily. --Rest as much as possible. -Do the nasal saline irrigation at least 2 x day to relieve nasal mucous and congestion: brands include Nicolás Med, Simply saline, Zumbrota nasal spray, or even the generic store brand one is ok. Take the entire course of antibiotics as prescribed. DO NOT stop taking it early, even if you are feeling better. -Practice good hygiene, wash hands frequently. -Monitor for signs of worsening infection: increased temperature, pain in face, ear pain or headaches or increase in nasal congestion/mucous that is not improving. -Educated patient on side effects of medication. Zyrtec 10 mg By mouth daily at bedtime Flonase or Nasonex 1 spray each nostril two times a day. You can take an OTC probiotic such as Culturelle or Align to help with stomach upset/loose stool that you may get as a side effect of the antibiotic. Diagnosis and treatment plan were discussed and questions were answered to the patient's satisfaction. Pt acknowledged understanding of concepts and follow up plan. Specific signs and symptoms that would indicate the need for higher level of care were discussed in detail warranting prompt ER evaluation. Faina Rodriguez APRN.CNP CNOV Observed: 02/12/2018 Status: COMPLETED Source: [place] 9:00 AM [facility] REPOSITORY Office Visit (UCWSTR) ELDER SIMPSON ([id number]) 1955 M Date Time Provider Department 02/12/18 9:00 AM FAINA RODRIGUEZ (GIUSEPPE) WSTR During your visit today, we recorded the following information about you: Temperature Respiration Weight 98.2 degrees 16/minute 96.2 kg Faina Rodriguez APRN.CNP 02/12/2018 9:32 AM Signed Subjective The history is provided by the patient. No restaurant team member was used. Cough Associated symptoms include sore throat. Pertinent negatives include no chest pain, no chills, no ear pain, no headaches, no myalgias, no shortness of breath and no wheezing. Sore Throat Associated symptoms include congestion and coughing. Pertinent negatives include no ear pain, headaches or shortness of breath. HPI Elder Simpson is a 62 year old male who presents today for CC of cough congestion. This started about 10 days ago. He is also having post nasal drainage, sore throat, and sinus pressure and congestion. Symptoms are worsened by leaning forward, lying down. He has tried nyquil. Risk factors family members PMH sinusitis. Temp 36.8 ?C (98.2 ?F) (Left Tympanic) Resp 16 Wt 96.2 kg (212 lb) SpO2 96% ALLERGIES No Known Allergies There is no problem list on file for this patient. No family history on file. Social History Marital status: Spouse name: Years of education: Number of children: Social History Main Topics Smoking status: Never Smoker Smokeless tobacco: Never Used Review of Systems Constitutional: Negative. Negative for chills, fever and malaise/fatigue. HENT: Positive for congestion, sinus pain and sore throat. Negative for ear pain. Post nasal drainage Respiratory: Positive for cough. Negative for sputum production, shortness of breath and wheezing. Cardiovascular: Negative for chest pain. Musculoskeletal: Negative for myalgias. Skin: Negative for rash. Neurological: Negative for headaches. Objective Physical Exam Constitutional: He is well-developed, well-nourished, and in no distress. HENT: Head: Normocephalic and atraumatic. Right Ear: External ear and ear canal normal. Tympanic membrane is bulging. Tympanic membrane is not injected, not erythematous and not retracted. A middle ear effusion (serous) is present. Left Ear: External ear and ear canal normal. Tympanic membrane is bulging. Tympanic membrane is not injected, not erythematous and not retracted. A middle ear effusion (serous) is present. Nose: Mucosal edema and rhinorrhea present. Right sinus exhibits maxillary sinus tenderness and frontal sinus tenderness. Left sinus exhibits maxillary sinus tenderness and frontal sinus tenderness. Mouth/Throat: Uvula is midline and mucous membranes are normal. Posterior oropharyngeal edema and posterior oropharyngeal erythema present. No oropharyngeal exudate or tonsillar abscesses. Eyes: Conjunctivae and EOM are normal. Pupils are equal, round, and reactive to light. Neck: Normal range of motion. Cardiovascular: Normal rate, regular rhythm and normal heart sounds. Pulmonary/Chest: Effort normal and breath sounds normal. No respiratory distress. He has no decreased breath sounds. He has no wheezes. He has no rhonchi. He has no rales. Lymphadenopathy: Head (right side): No submental, no submandibular, no tonsillar, no preauricular and no posterior auricular adenopathy present. Head (left side): No submental, no submandibular, no tonsillar, no preauricular and no posterior auricular adenopathy present. Right cervical: No superficial cervical and no posterior cervical adenopathy present. Left cervical: No superficial cervical and no posterior cervical adenopathy present. Right: No supraclavicular adenopathy present. Left: No supraclavicular adenopathy present. Skin: Skin is warm and dry. Psychiatric: Affect normal. Nursing note and vitals reviewed. ASSESSMENT/PLAN: 1. Acute non-recurrent pansinusitis - ICD9: 461.8, ICD10: J01.40 - Will begin treatment with Augmentin 875 mg PO BID for 10 days - The patient should also be given warm salt water gargles, throat lozenges and/or OTC throat spray as needed for the first 5-7 days of treatment. - Supportive care with plenty of fluids, rest, and analgesia prn. - Follow up in one week if symptoms persist or worsen. - AMOXICILLIN 875 MG-POTASSIUM CLAVULANATE 125 MG TABLET -Increase fluid intake. Try to drink at least 8 glasses of non caffeinated fluids daily. --Rest as much as possible. -Do the nasal saline irrigation at least 2 x day to relieve nasal mucous and congestion: brands include Nicolás Med, Simply saline, Zumbrota nasal spray, or even the generic store brand one is ok. Take the entire course of antibiotics as prescribed. DO NOT stop taking it early, even if you are feeling better. -Practice good hygiene, wash hands frequently. -Monitor for signs of worsening infection: increased temperature, pain in face, ear pain or headaches or increase in nasal congestion/mucous that is not improving. -Educated patient on side effects of medication. Zyrtec 10 mg By mouth daily at bedtime Flonase or Nasonex 1 spray each nostril two times a day. You can take an OTC probiotic such as Culturelle or Align to help with stomach upset/loose stool that you may get as a side effect of the antibiotic. Diagnosis and treatment plan were discussed and questions were answered to the patient's satisfaction. Pt acknowledged understanding of concepts and follow up plan. Specific signs and symptoms that would indicate the need for higher level of care were discussed in detail warranting prompt ER evaluation. NATO Riggs APRN.CNP 02/12/2018 9:27 AM Signed ASSESSMENT/PLAN: 1. Acute non-recurrent pansinusitis - ICD9: 461.8, ICD10: J01.40 - Will begin treatment with Augmentin 875 mg PO BID for 10 days - The patient should also be given warm salt water gargles, throat lozenges and/or OTC throat spray as needed for the first 5-7 days of treatment. - Supportive care with plenty of fluids, rest, and analgesia prn. - Follow up in one week if symptoms persist or worsen. - AMOXICILLIN 875 MG-POTASSIUM CLAVULANATE 125 MG TABLET -Increase fluid intake. Try to drink at least 8 glasses of non caffeinated fluids daily. --Rest as much as possible. -Do the nasal saline irrigation at least 2 x day to relieve nasal mucous and congestion: brands include Nicolás Med, Simply saline, Zumbrota nasal spray, or even the generic store brand one is ok. Take the entire course of antibiotics as prescribed. DO NOT stop taking it early, even if you are feeling better. -Practice good hygiene, wash hands frequently. -Monitor for signs of worsening infection: increased temperature, pain in face, ear pain or headaches or increase in nasal congestion/mucous that is not improving. -Educated patient on side effects of medication. Zyrtec 10 mg By mouth daily at bedtime Flonase or Nasonex 1 spray each nostril two times a day. You can take an OTC probiotic such as Culturelle or Align to help with stomach upset/loose stool that you may get as a side effect of the antibiotic. Referring Provider: SELF [200] Allergies As of Date: 02/12/2018 (No Known Allergies) Date Reviewed: 02/12/2018 Reviewed by: Faina ([facility] - Fully Assessed Reason for Visit: Cough [28] Cmt: x 1 week cough and chest congestion Pain, Sinus [857] Cmt: x 1 week Post Nasal Drip [1367] Cmt: x 1 week Sore Throat [200] Cmt: x 1 week Primary Visit Diagnosis:Acute non-recurrent pansinusitis [J01.40] Order(s):amoxicillin-clavulanic acid (AUGMENTIN) 875-125 mg per tabletTake 1 tablet by mouth twice daily for 10 days.Disp: 20 tabletRfl: 0 Prescriptions as of 02/12/2018 Sig: LIRAGLUTIDE 0.6 MG/0.1 ML (18* Inject subcutaneously once d* NAPROXEN 500 MG TABLET Take 1 tablet by mouth twice * METFORMIN ORAL Take by mouth. SIMVASTATIN ORAL Take by mouth. LISINOPRIL ORAL Take by mouth. ASPIRIN 81 MG TABLET,DELAYED * Take 81 mg by mouth once pietro* AMOXICILLIN 875 MG-POTASSIUM * Take 1 tablet by mouth twice * Problem List As Of Date: 02/12/2018 (None) Other instructions from your clinician: ASSESSMENT/PLAN: 1. Acute non-recurrent pansinusitis - ICD9: 461.8, ICD10: J01.40 - Will begin treatment with Augmentin 875 mg PO BID for 10 days - The patient should also be given warm salt water gargles, throat lozenges and/or OTC throat spray as needed for the first 5-7 days of treatment. - Supportive care with plenty of fluids, rest, and analgesia prn. - Follow up in one week if symptoms persist or worsen. - AMOXICILLIN 875 MG-POTASSIUM CLAVULANATE 125 MG TABLET -Increase fluid intake. Try to drink at least 8 glasses of non caffeinated fluids daily. --Rest as much as possible. -Do the nasal saline irrigation at least 2 x day to relieve nasal mucous and congestion: brands include Nicolás Med, Simply saline, Zumbrota nasal spray, or even the generic store brand one is ok. Take the entire course of antibiotics as prescribed. DO NOT stop taking it early, even if you are feeling better. -Practice good hygiene, wash hands frequently. -Monitor for signs of worsening infection: increased temperature, pain in face, ear pain or headaches or increase in nasal congestion/mucous that is not improving. -Educated patient on side effects of medication. Zyrtec 10 mg By mouth daily at bedtime Flonase or Nasonex 1 spray each nostril two times a day. You can take an OTC probiotic such as Culturelle or Align to help with stomach upset/loose stool that you may get as a side effect of the antibiotic. Prescriptions ordered this encounter Disp Refills Start End AMOXICILLIN 875 MG-POTASSIUM CLAVULA* 20 t* 0 02/12/2018 02/22/2018 Route: ORAL Sig: Take 1 tablet by mouth twice daily for 10 days. Encounter Status:Closed by FAINA RODRIGUEZ CNP on 02/12/18 PROGRESS Observed: 01/01/2018 Status: COMPLETED Source: [facility] 10:14 AM [facility] [place] REPOSITORY HNO ID: [id number] Author: Faina Cortes) Jennifer Service: (none) Author Type: Nurse Practitioner Type: Progress Notes Filed: 01/01/2018 10:36 AM Note Text: Subjective The history is provided by the patient. No restaurant team member was used. HPI Elder Simpson is a 62 year old male who presents today for CC of sore throat This started over a week ago. He is also having nasal congestion sinus pressure, and green drainage that is getting worse Symptoms are worsened by lying down He has tried no treatment or medications. Risk factors co workers ill PMH sinusitis BP 122/78 Pulse 93 Temp 36.9 ?C (98.4 ?F) (Tympanic) Resp 18 Wt 97.3 kg (214 lb 6.4 oz) SpO2 96% ALLERGIES No Known Allergies There is no problem list on file for this patient. No family history on file. Social History Marital status: Spouse name: Years of education: Number of children: Social History Main Topics Smoking status: Never Smoker Smokeless status: Never Used Review of Systems Constitutional: Negative. Negative for chills, fever and malaise/fatigue. HENT: Positive for congestion and sinus pain. Negative for ear pain and sore throat. Eyes: Negative for discharge and redness. Respiratory: Negative for cough, sputum production, shortness of breath and wheezing. Cardiovascular: Negative for chest pain. Musculoskeletal: Negative for myalgias. Skin: Negative for rash. Neurological: Positive for headaches (sinus). Objective Physical Exam Constitutional: He is well-developed, well-nourished, and in no distress. HENT: Head: Normocephalic and atraumatic. Right Ear: Tympanic membrane, external ear and ear canal normal. Tympanic membrane is not injected, not erythematous, not retracted and not bulging. No middle ear effusion. Left Ear: Tympanic membrane, external ear and ear canal normal. Tympanic membrane is not injected, not erythematous, not retracted and not bulging. No middle ear effusion. Nose: Mucosal edema and rhinorrhea present. Right sinus exhibits maxillary sinus tenderness. Right sinus exhibits no frontal sinus tenderness. Left sinus exhibits maxillary sinus tenderness. Left sinus exhibits no frontal sinus tenderness. Mouth/Throat: Uvula is midline and mucous membranes are normal. Posterior oropharyngeal erythema present. No oropharyngeal exudate, posterior oropharyngeal edema or tonsillar abscesses. Clear PND Eyes: Conjunctivae and EOM are normal. Pupils are equal, round, and reactive to light. Neck: Normal range of motion. Cardiovascular: Normal rate, regular rhythm and normal heart sounds. Pulmonary/Chest: Effort normal and breath sounds normal. No respiratory distress. He has no wheezes. He has no rales. Lymphadenopathy: Head (right side): No submental, no submandibular, no tonsillar, no preauricular and no posterior auricular adenopathy present. Head (left side): No submental, no submandibular, no tonsillar, no preauricular and no posterior auricular adenopathy present. He has no cervical adenopathy. Right cervical: No posterior cervical adenopathy present. Left cervical: No posterior cervical adenopathy present. Right: No supraclavicular adenopathy present. Left: No supraclavicular adenopathy present. Skin: Skin is warm and dry. Psychiatric: Affect normal. Nursing note and vitals reviewed. ASSESSMENT/PLAN: 1. Acute non-recurrent maxillary sinusitis - ICD9: 461.0, ICD10: J01.00 (primary diagnosis) - Will begin treatment with Augmentin 875 mg PO BID for 10 days - The patient should also be given warm salt water gargles, throat lozenges and/or OTC throat spray as needed for the first 5- 7 days of treatment. - Supportive care with plenty of fluids, rest, and analgesia prn. - Follow up in 3-5 days if symptoms persist or worsen. - -Increase fluid intake. Try to drink at least 8 glasses of non caffeinated fluids daily. --Rest as much as possible. -Do the nasal saline irrigation at least 2 x day to relieve nasal mucous and congestion: brands include Nicolás Med, Simply saline, Zumbrota nasal spray, or even the generic store brand one is ok. Take the entire course of antibiotics as prescribed. DO NOT stop taking it early, even if you are feeling better. -Practice good hygiene, wash hands frequently. -Monitor for signs of worsening infection: increased temperature, pain in face, ear pain or headaches or increase in nasal congestion/mucous that is not improving. -Educated patient on side effects of medication. - AMOXICILLIN 875 MG-POTASSIUM CLAVULANATE 125 MG TABLET - You can take an OTC probiotic such as Culturelle or Align to help with stomach upset/loose stool that you may get as a side effect of the antibiotic. Zyrtec 10 mg By mouth daily at bedtime Flonase 1 spray each nostril two times a day. 2. Sore throat - ICD9: 462, ICD10: J02.9 - suspect viral - Rapid Strep negative in the office today - overnight throat culture pending, Only call if Strep culture is positive. - Discussed supportive care treatment with fluids, rest and analgesia. - The patient may also use warm salt water gargles, throat lozenges and/or OTC throat spray as needed. - The patient should follow up in one week if symptoms persist or worsen - Call back if drooling, increased temperature, symptoms of dehydration and/or still sick in one week - RAPID STREP TEST B/O - GROUP A STREPTOCOCCUS BY PCR * Seek medical care immediately, call 911, go to ER if you have chest pain, difficulty breathing, shortness of breath, inability to swallow. Diagnosis and treatment plan were discussed and questions were answered to the patient's satisfaction. Pt acknowledged understanding of concepts and follow up plan. Specific signs and symptoms that would indicate the need for higher level of care were discussed in detail warranting prompt ER evaluation. Faina Rodriguez CNP CNOV Observed: 01/01/2018 Status: COMPLETED Source: [place] 9:15 AM [facility] REPOSITORY Office Visit ([facility]) ELDER SIMPSON ([id number]) 1955 M Date Time Provider Department 01/01/18 9:15 AM FAINA RODRIGUEZ) [facility] During your visit today, we recorded the following information about you: Temperature Pulse Respiration Blood pressure 98.4 degrees 93/minute 18/minute 122/78 Weight 97.3 kg Faina Rodriguez CNP 01/01/2018 10:36 AM Addendum Subjective The history is provided by the patient. No restaurant team member was used. HPI Elder Simpson is a 62 year old male who presents today for CC of sore throat This started over a week ago. He is also having nasal congestion sinus pressure, and green drainage that is getting worse Symptoms are worsened by lying down He has tried no treatment or medications. Risk factors co workers ill PMH sinusitis BP 122/78 Pulse 93 Temp 36.9 ?C (98.4 ?F) (Tympanic) Resp 18 Wt 97.3 kg (214 lb 6.4 oz) SpO2 96% ALLERGIES No Known Allergies There is no problem list on file for this patient. No family history on file. Social History Marital status: Spouse name: Years of education: Number of children: Social History Main Topics Smoking status: Never Smoker Smokeless status: Never Used Review of Systems Constitutional: Negative. Negative for chills, fever and malaise/fatigue. HENT: Positive for congestion and sinus pain. Negative for ear pain and sore throat. Eyes: Negative for discharge and redness. Respiratory: Negative for cough, sputum production, shortness of breath and wheezing. Cardiovascular: Negative for chest pain. Musculoskeletal: Negative for myalgias. Skin: Negative for rash. Neurological: Positive for headaches (sinus). Objective Physical Exam Constitutional: He is well-developed, well-nourished, and in no distress. HENT: Head: Normocephalic and atraumatic. Right Ear: Tympanic membrane, external ear and ear canal normal. Tympanic membrane is not injected, not erythematous, not retracted and not bulging. No middle ear effusion. Left Ear: Tympanic membrane, external ear and ear canal normal. Tympanic membrane is not injected, not erythematous, not retracted and not bulging. No middle ear effusion. Nose: Mucosal edema and rhinorrhea present. Right sinus exhibits maxillary sinus tenderness. Right sinus exhibits no frontal sinus tenderness. Left sinus exhibits maxillary sinus tenderness. Left sinus exhibits no frontal sinus tenderness. Mouth/Throat: Uvula is midline and mucous membranes are normal. Posterior oropharyngeal erythema present. No oropharyngeal exudate, posterior oropharyngeal edema or tonsillar abscesses. Clear PND Eyes: Conjunctivae and EOM are normal. Pupils are equal, round, and reactive to light. Neck: Normal range of motion. Cardiovascular: Normal rate, regular rhythm and normal heart sounds. Pulmonary/Chest: Effort normal and breath sounds normal. No respiratory distress. He has no wheezes. He has no rales. Lymphadenopathy: Head (right side): No submental, no submandibular, no tonsillar, no preauricular and no posterior auricular adenopathy present. Head (left side): No submental, no submandibular, no tonsillar, no preauricular and no posterior auricular adenopathy present. He has no cervical adenopathy. Right cervical: No posterior cervical adenopathy present. Left cervical: No posterior cervical adenopathy present. Right: No supraclavicular adenopathy present. Left: No supraclavicular adenopathy present. Skin: Skin is warm and dry. Psychiatric: Affect normal. Nursing note and vitals reviewed. ASSESSMENT/PLAN: 1. Acute non-recurrent maxillary sinusitis - ICD9: 461.0, ICD10: J01.00 (primary diagnosis) - Will begin treatment with Augmentin 875 mg PO BID for 10 days - The patient should also be given warm salt water gargles, throat lozenges and/or OTC throat spray as needed for the first 5-7 days of treatment. - Supportive care with plenty of fluids, rest, and analgesia prn. - Follow up in 3-5 days if symptoms persist or worsen. - -Increase fluid intake. Try to drink at least 8 glasses of non caffeinated fluids daily. --Rest as much as possible. -Do the nasal saline irrigation at least 2 x day to relieve nasal mucous and congestion: brands include Nicolás Med, Simply saline, Zumbrota nasal spray, or even the generic store brand one is ok. Take the entire course of antibiotics as prescribed. DO NOT stop taking it early, even if you are feeling better. -Practice good hygiene, wash hands frequently. -Monitor for signs of worsening infection: increased temperature, pain in face, ear pain or headaches or increase in nasal congestion/mucous that is not improving. -Educated patient on side effects of medication. - AMOXICILLIN 875 MG-POTASSIUM CLAVULANATE 125 MG TABLET - You can take an OTC probiotic such as Culturelle or Align to help with stomach upset/loose stool that you may get as a side effect of the antibiotic. Zyrtec 10 mg By mouth daily at bedtime Flonase 1 spray each nostril two times a day. 2. Sore throat - ICD9: 462, ICD10: J02.9 - suspect viral - Rapid Strep negative in the office today - overnight throat culture pending, Only call if Strep culture is positive. - Discussed supportive care treatment with fluids, rest and analgesia. - The patient may also use warm salt water gargles, throat lozenges and/or OTC throat spray as needed. - The patient should follow up in one week if symptoms persist or worsen - Call back if drooling, increased temperature, symptoms of dehydration and/or still sick in one week - RAPID STREP TEST B/O - GROUP A STREPTOCOCCUS BY PCR * Seek medical care immediately, call 911, go to ER if you have chest pain, difficulty breathing, shortness of breath, inability to swallow. Diagnosis and treatment plan were discussed and questions were answered to the patient's satisfaction. Pt acknowledged understanding of concepts and follow up plan. Specific signs and symptoms that would indicate the need for higher level of care were discussed in detail warranting prompt ER evaluation. GIUSEPPE Riggs CNP 01/01/2018 10:22 AM Addendum ASSESSMENT/PLAN: 1. Acute non-recurrent maxillary sinusitis - ICD9: 461.0, ICD10: J01.00 (primary diagnosis) - Will begin treatment with Augmentin 875 mg PO BID for 10 days - The patient should also be given warm salt water gargles, throat lozenges and/or OTC throat spray as needed for the first 5-7 days of treatment. - Supportive care with plenty of fluids, rest, and analgesia prn. - Follow up in 3-5 days if symptoms persist or worsen. - -Increase fluid intake. Try to drink at least 8 glasses of non caffeinated fluids daily. --Rest as much as possible. -Do the nasal saline irrigation at least 2 x day to relieve nasal mucous and congestion: brands include Nicolás Med, Simply saline, Zumbrota nasal spray, or even the generic store brand one is ok. Take the entire course of antibiotics as prescribed. DO NOT stop taking it early, even if you are feeling better. -Practice good hygiene, wash hands frequently. -Monitor for signs of worsening infection: increased temperature, pain in face, ear pain or headaches or increase in nasal congestion/mucous that is not improving. -Educated patient on side effects of medication. - AMOXICILLIN 875 MG-POTASSIUM CLAVULANATE 125 MG TABLET - You can take an OTC probiotic such as Culturelle or Align to help with stomach upset/loose stool that you may get as a side effect of the antibiotic. Zyrtec 10 mg By mouth daily at bedtime Flonase 1 spray each nostril two times a day. 2. Sore throat - ICD9: 462, ICD10: J02.9 - suspect viral - Rapid Strep negative in the office today - overnight throat culture pending, Only call if Strep culture is positive. - Discussed supportive care treatment with fluids, rest and analgesia. - The patient may also use warm salt water gargles, throat lozenges and/or OTC throat spray as needed. - The patient should follow up in one week if symptoms persist or worsen - Call back if drooling, increased temperature, symptoms of dehydration and/or still sick in one week - RAPID STREP TEST B/O - GROUP A STREPTOCOCCUS BY PCR * Seek medical care immediately, call 911, go to ER if you have chest pain, difficulty breathing, shortness of breath, inability to swallow. Referring Provider: SELF [200] Allergies As of Date: 01/01/2018 (No Known Allergies) Date Reviewed: 01/01/2018 Reviewed by: Faina (Faizan Rodriguez - Fully Assessed Reason for Visit: sore throat and cough [Other] Cmt: x 1 week Primary Visit Diagnosis:Acute non-recurrent maxillary sinusitis [J01.00] Other Visit Diagnosis:Sore throat [J02.9] Order(s):RAPID STREP TEST B/O [[id number]] Order #: [id number] GROUP A STREPTOCOCCUS BY PCR [SQGASPCR] Order #: [id number] amoxicillin-clavulanic acid (AUGMENTIN) 875-125 mg per tabletTake 1 tablet by mouth twice daily for 10 days.Disp: 20 tabletRfl: 0 Prescriptions as of 01/01/2018 Sig: LIRAGLUTIDE 0.6 MG/0.1 ML (18* Inject subcutaneously once d* NAPROXEN 500 MG TABLET Take 1 tablet by mouth twice * METFORMIN ORAL Take by mouth. SIMVASTATIN ORAL Take by mouth. LISINOPRIL ORAL Take by mouth. ASPIRIN 81 MG TABLET,DELAYED * Take 81 mg by mouth once pietro* AMOXICILLIN 875 MG-POTASSIUM * Take 1 tablet by mouth twice * Problem List As Of Date: 01/01/2018 (None) Other instructions from your clinician: ASSESSMENT/PLAN: 1. Acute non-recurrent maxillary sinusitis - ICD9: 461.0, ICD10: J01.00 (primary diagnosis) - Will begin treatment with Augmentin 875 mg PO BID for 10 days - The patient should also be given warm salt water gargles, throat lozenges and/or OTC throat spray as needed for the first 5-7 days of treatment. - Supportive care with plenty of fluids, rest, and analgesia prn. - Follow up in 3-5 days if symptoms persist or worsen. - -Increase fluid intake. Try to drink at least 8 glasses of non caffeinated fluids daily. --Rest as much as possible. -Do the nasal saline irrigation at least 2 x day to relieve nasal mucous and congestion: brands include Nicolás Med, Simply saline, Zumbrota nasal spray, or even the generic store brand one is ok. Take the entire course of antibiotics as prescribed. DO NOT stop taking it early, even if you are feeling better. -Practice good hygiene, wash hands frequently. -Monitor for signs of worsening infection: increased temperature, pain in face, ear pain or headaches or increase in nasal congestion/mucous that is not improving. -Educated patient on side effects of medication. - AMOXICILLIN 875 MG-POTASSIUM CLAVULANATE 125 MG TABLET - You can take an OTC probiotic such as Culturelle or Align to help with stomach upset/loose stool that you may get as a side effect of the antibiotic. Zyrtec 10 mg By mouth daily at bedtime Flonase 1 spray each nostril two times a day. 2. Sore throat - ICD9: 462, ICD10: J02.9 - suspect viral - Rapid Strep negative in the office today - overnight throat culture pending, Only call if Strep culture is positive. - Discussed supportive care treatment with fluids, rest and analgesia. - The patient may also use warm salt water gargles, throat lozenges and/or OTC throat spray as needed. - The patient should follow up in one week if symptoms persist or worsen - Call back if drooling, increased temperature, symptoms of dehydration and/or still sick in one week - RAPID STREP TEST B/O - GROUP A STREPTOCOCCUS BY PCR * Seek medical care immediately, call 911, go to ER if you have chest pain, difficulty breathing, shortness of breath, inability to swallow. Prescriptions ordered this encounter Disp Refills Start End AMOXICILLIN 875 MG-POTASSIUM CLAVULA* 20 t* 0 01/01/2018 01/11/2018 Route: ORAL Sig: Take 1 tablet by mouth twice daily for 10 days. Encounter Status:Closed by FAINA RODRIGUEZ CNP on 01/01/18 GROUP A STREP BY Collected: 01/01/2018 Status: F Source: [facility] PCR 1:20 AM [facility] REPOSITORY TYPE CODE TESTS RESULT OUT OF REFERENCE UNITS RANGE LAB GASSRC Throat Swab GAS Specimen Source LAB PCRGAS Negative for Group A Strep Group A PCR Streptococcus by PCR. Result Comment: This test was developed and its performance characteristics determined by [facility] [place] [facility] It has not been cleared or approved by the FDA. [facility] is regulated under CLIA as qualified to perform high-complexity testing. This test is used for clinical purposes. It should not be regarded as inv estigational or for research. Performed By: #### GASPCR #### [facility] [address] [place], [place] [address] ALLERGIES ALLERGIES DATE TYPE / CODE NAME / CODE REACTION SEVERITY SOURCE 11/25/2015 Drug No Known Unknown [place] [facility] Allergy/416 Allergies/[id number] [facility] 289293(SNOM 0388(RXNORM) Repository ED CT) Drug NO KNOWN [facility] Class/17156 ALLERGIES [place] 1003(SNOMED Repository CT) ENCOUNTERS ENCOUNTERS ADMIT/DISCHARGE ACCOUNT ADMITTING ENCOUNTER LOCATION SOURCE NUMBER CLASS 11/03/2018 [id number] [facility] ing:OT Repository 09/14/2018/09/14/20 [id number] Ambulatory [address] Repository 09/14/2018/09/15/[id number] Repository 06/17/2018 [id number] [facility] ing:MTRAD Repository 06/15/2018/06/15/[id number] Repository 06/15/2018/06/16/[id number] Repository 03/29/2018 [id number] [facility] ing:LABSPEC Repository 02/12/2018/02/15/[id number] Repository 01/01/2018/01/04/[id number] Repository PAYERS PAYERS ENCOUNTER GUARANTOR PAYER SUBSCRIBER SOURCE 11/03/2018 ELDER Stacey Primary SHANIKA F Lavinia [id number] Insurance:AETNAMasood DINHB: [facility] [place]: [id number] [id number] Repository [address]Boo: 330) Date:[id number] [phone] () [id number] CARMEN RUSSELL [id number]: 11/03/2018 Secondary NOT GIVENUNK [place] Insurance:SELF PAY [facility] Number: Effective Repository Date:2018-11-01 06/17/2018 Elder Ibarra Primary SHANIKA F [place] [id number] Insurance:AETDavida [facility] [place]: [id number] [id number] Repository [address]Ttb: (330) Date:[id number] [phone] () [id number] CARMEN RUSSELL [phone]: 06/17/2018 Secondary NOT GIVENUNK [place] Insurance:SELF PAY [facility] Number: Effective Repository Date:2018-06-17 03/29/2018 Elder Stacey Primary NOT GIVENUNK [place] [id number] Insurance:SELF PAY [place], [place] Number: Effective Repository [id number]: Date:2018-03-29 ~216 2 ()
== END 2018-11-03 19:00 | disposition home or self-care (01) ==
LOC: OT 08:51
PROVIDERS: Family Provider Family Medicine; PCP Family Medicine; Referring Provider Orthopaedic Surgery; Visit Provider Orthopaedic Surgery
DX: S62.615D Displaced fracture of proximal phalanx of left ring finger, subsequent encounter for fracture with routine healing (principal)
CPT/HCPCS: 97166

== ENCOUNTER → 2019-06-16 | Outpatient (CLI) | payer OTHER, SELFPAY ==
[2019-06-16 12:44] LABS: Microalbumin,Random Urine 10.9 mg/L (NO RANGE EST.); Microalbumin:Creatinine Ratio 7.9 mg/g CRE (<30 mg/g CRE)
[2019-06-16 13:12] LABS: AST(SGOT) 14 U/L (15-37); Alanine Aminotransfer ALT/SGPT 34 U/L (16-61); Albumin, Serum 3.8 g/dL (3.2-5.0); Alkaline Phosphatase 72 U/L (45-117); Anion Gap 7 (5-15); BUN 24 mg/dL (7-18); BUN/Creat Ratio 23.1 RATIO (10-20); Calcium,Total 8.6 mg/dL (8.5-10.1); Chloride 104 mmol/L (98-107); Cholesterol 122 mg/dL (200); Creatinine, Serum 1.04 mg/dL (0.70-1.30); EST Glomerular Filtration Rate 77 mL/min (>60); Est Glom Filt Rate - Afr Amer 93 mL/min (>60); Globulin 3.4 g/dL (2.2-4.2); Glucose 208 mg/dL (74-106); High Density Lipoprotein 41 mg/dL; Potassium 4.2 mmol/L (3.5-5.1); Protein, Total 7.2 g/dL (6.4-8.2); Sodium Level 137 mmol/L (136-145); T4 Total, Thyroxin 7.8 ug/dL (4.5-12.1); Thyroid Stim Hormone (TSH) 3.13 uIU/mL (0.358-3.74); Triglycerides 64 mg/dL; Very Low Density Lipoprotein 13 mg/dL (5-40)
== END | disposition home or self-care (01) ==
LOC: MFPLAB 10:18
PROVIDERS: Family Provider Family Medicine; PCP Family Medicine; Referring Provider Family Medicine; Visit Provider Family Medicine
DX: E11.9 Type 2 diabetes mellitus without complications (principal); E03.9 Hypothyroidism, unspecified
CPT/HCPCS: 36415; 80048; 80061; 80076; 82043; 82570; 84436; 84443

== ENCOUNTER → 2019-07-19 | Outpatient (CLI) | payer OTHER, SELFPAY ==
--- NOTE | 2019-07-19 15:29 | RAD_ITS ---
STUDY: X-RAY - PELVIS AND LEFT HIP REASON FOR EXAM: Male, 63 years old. Left hip pain TECHNIQUE: 2 views of the pelvis and hip. COMPARISON: None. FINDINGS: There is a non-specific bowel gas pattern. Pelvic phleboliths. Normal bilateral iliac wings, sacroiliac joints and visualized sacrum. Normal bilateral superior and inferior pubic rami. Normal pubic symphysis. Normal bilateral ischial tuberosities. Normal visualized femoral head. Normal acetabulum. Normal hip joint. RAD/HIP, UNI W/ Pelvis 2-3 Views IMPRESSION: Normal x-ray examination of the pelvis and hip. Electronically Signed: Kevin Watts MD at 16:19 EDT Tel , Service support ,
== END | disposition home or self-care (01) ==
LOC: MTRAD 15:27
PROVIDERS: Family Provider Family Medicine; PCP Family Medicine; Referring Provider Family Medicine; Visit Provider Family Medicine
DX: M25.552 Pain in left hip (principal)
CPT/HCPCS: 73502

== ENCOUNTER 2019-08-24 17:00 | Outpatient (RCR) | payer OTHER, SELFPAY ==
--- NOTE | 2019-07-31 17:53 | HP.PTEVAL ---
Patient's Visit Information ELDER SIMPSON is a 63 year old M referred to Physical Therapy by Fela Adam MD with a diagnosis of L hip pain. Date of Evaluation: 07/31/19 Physical Therapist: Holger De León, PT, ATC - Visit Plan Frequency: 2x /Week Duration: 3 Weeks Plan: L LE stretching (IT band, HS's), DTR, foam roller, US, and HEP - Subjective Findings: Pt states L hip has been going on for a couple months. Pt reports L hip pain came on gradually with no specific event causing the pain. Pt describes oain as dull/aching. Pt states pain at rest is 2/10. Pt states pain at its worst is 9/10. Pt states walking, going up/down steps, and getting up out of chair cause pain to increase. Pt states L hip feels as if it is catching. 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 Pt states pain gets better when walking for short periods of time, but pain does inc when walking for longer periods of time. Pt states pain makes it difficult to sleep at night. Pt has no numbness/tingling in L leg or hip. Pt notices no popping or cracking in L hip. Pt states L hip pain makes getting dressed difficult. Pt states standing for long periods of time increases pain. Pt states this has not happened before. - Pain L hip pain Pain Intensity (Out of 10): 2 Pain Intensity Range: 9 - Objective Neuro: B LE sensation is WNL to light touch. B patellar reflex= 1/3. Palpation: Pt is very sore on nthe greater trochanter of L hip. No obvious deformity present. ROM: B LE's Are WNL. MMT: L hip flex and ER= 4/5. All other movements 5/5 throughout. Special tests: Pos jose a, obers, and 90/90 tests - Goals Goal 1:: Decrease L hip pain x 50% to aid with sleep Goal Time Frame: 2-4 Weeks Goal 2:: Increase L LE flexibility x 1 grade to aid with decreasing pain Goal Time Frame: 2-4 Weeks Goal 3:: I with HEP Goal Time Frame: 2-4 Weeks - Rehabilitation Potential Physical Therapy Diagnosis: L hip pain, weakness, and limited flexibility secondary to L greater trochanteric bursitis Rehabilitation Potential: Good - Anticipated Interventions Patient/Client Instruction: Educate patient on: Condition, Plan of Care For the Purpose of:: To improve self management Therapeutic Exercise to Include: Strength training, Flexibilty training, Active ROM, Dynamic Lumbar Stabilization For the Purpose of:: To decrease pain, To increase ROM, To improve muscle performance and motor function Cryotherapy (ice pack, ice massage): Yes For the Purpose of:: To decrease pain, To improve muscle performance and motor function, To improve health of tissue Thank you for the opportunity to evaluate your patient. For Medicare and Medicare HMO plans, please review the plan of care and approve it. It will need to be FAXED BACK to us at [phone] for Medicare purposes. For Medicare only, by signing this I certify the plan of care. Please let me know if there are questions or concerns regarding this plan of care. Physician Signature: Date:
--- NOTE | 2019-10-04 13:26 | HP.PT.NRP ---
HP - Discharge Summary (1) - Patient Information ELDER SIMPSON was seen in my office for initial evaluation on 07/31/19. The following Plan of Care was established for this patient: Initial Frequency: 2x /Week Initial Duration: 3 Weeks - Anticipated Interventions Patient/Client Instruction: Educate patient on: Condition, Plan of Care For the Purpose of:: To improve self management Therapeutic Exercise to Include: Strength training, Flexibilty training, Active ROM, Dynamic Lumbar Stabilization For the Purpose of:: To decrease pain, To increase ROM, To improve muscle performance and motor function Cryotherapy (ice pack, ice massage): Yes For the Purpose of:: To decrease pain, To improve muscle performance and motor function, To improve health of tissue This patient was last seen in our office . Pertinent comments regarding their Physical therapy will appear below: Pt was treated for 2 PT visits for L hip pain through the date of 08/03/19. Pt has not returned through todays date and is therefore discontinued at this time. At this point I will be discontinuing this patient from physical therapy. I would be happy to see this patient again in the future if found appropriate by the physician. Thank you! Holger De León, PT, ATC
== END 2019-08-24 19:00 | disposition home or self-care (01) ==
LOC: PT 17:00
PROVIDERS: Family Provider Family Medicine; PCP Family Medicine; Referring Provider Family Medicine; Visit Provider Family Medicine
DX: M25.552 Pain in left hip (principal)
CPT/HCPCS: 97110; 97161

== ENCOUNTER → 2020-02-01 | Outpatient (CLI) | payer OTHER, SELFPAY ==
[2020-02-01 18:48] LABS: Anion Gap 5 (5-15); BUN 20 mg/dL (7-18); BUN/Creat Ratio 20.1 RATIO (10-20); Calcium,Total 8.4 mg/dL (8.5-10.1); Chloride 108 mmol/L (98-107); EST Glomerular Filtration Rate 81 mL/min (>60); Est Glom Filt Rate - Afr Amer 97 mL/min (>60); Glucose 136 mg/dL (74-106); Potassium 3.6 mmol/L (3.5-5.1); Sodium Level 140 mmol/L (136-145)
[2020-02-02 09:17] LABS: ALB/GLOB Ratio 1.3 RATIO (0.9-2.4); AST(SGOT) 21 U/L (15-37); Alanine Aminotransfer ALT/SGPT 34 U/L (16-61); Albumin, Serum 3.9 g/dL (3.2-5.0); Alkaline Phosphatase 57 U/L (45-117); Globulin 2.9 g/dL (2.2-4.2); Protein, Total 6.8 g/dL (6.4-8.2)
== END | disposition home or self-care (01) ==
LOC: MTLAB 16:24
PROVIDERS: PCP Family Medicine; Referring Provider Family Medicine; Visit Provider Family Medicine
DX: M79.10 Myalgia, unspecified site (principal)
CPT/HCPCS: 36415; 80048; 82040; 82247; 84075; 84156; 84450; 84460

== ENCOUNTER → 2020-05-08 | Outpatient (CLI) | payer OTHER, SELFPAY ==
[2020-05-08 13:02] LABS: Microalbumin,Random Urine 35.2 mg/L (NO RANGE EST.); Microalbumin:Creatinine Ratio 13.7 mg/g CRE (<30 mg/g CRE)
[2020-05-08 13:14] LABS: AST(SGOT) 20 U/L (15-37); Alanine Aminotransfer ALT/SGPT 38 U/L (16-61); Albumin, Serum 4.1 g/dL (3.2-5.0); Alkaline Phosphatase 67 U/L (45-117); Anion Gap 3 (5-15); BUN 19 mg/dL (7-18); BUN/Creat Ratio 19.8 RATIO (10-20); Bilirubin, Direct 0.21 mg/dL (0.00-0.30); Calcium,Total 8.4 mg/dL (8.5-10.1); Chloride 109 mmol/L (98-107); Cholesterol 131 mg/dL (200); Creatinine, Serum 0.96 mg/dL (0.70-1.30); EST Glomerular Filtration Rate 84 mL/min (>60); Est Glom Filt Rate - Afr Amer 102 mL/min (>60); Globulin 3.2 g/dL (2.2-4.2); Glucose 189 mg/dL (74-106); High Density Lipoprotein 38 mg/dL; PSA,Total - Annual Screen 0.45 ng/mL (0.00-4.00); Potassium 4.4 mmol/L (3.5-5.1); Protein, Total 7.3 g/dL (6.4-8.2); Sodium Level 138 mmol/L (136-145); Triglycerides 67 mg/dL; Very Low Density Lipoprotein 13 mg/dL (5-40)
== END | disposition home or self-care (01) ==
LOC: MFPLAB 09:48
PROVIDERS: PCP Family Medicine; Referring Provider Family Medicine; Visit Provider Family Medicine
DX: Z00.00 Encounter for general adult medical examination without abnormal findings (principal); E11.65 Type 2 diabetes mellitus with hyperglycemia; Z12.5 Encounter for screening for malignant neoplasm of prostate
CPT/HCPCS: 36415; 80048; 80061; 80076; 82043; 82570; 84153; G0103

== ENCOUNTER → 2020-05-21 | Outpatient (CLI) | payer OTHER, SELFPAY ==
[2020-05-21 12:27] LABS: Absolute Lymphocyte Count 1.42 X10^3/uL (0.83-4.51); Absolute Neutrophil Count 5.6 X10^3/uL (2.0-7.7); Basophil# 0.07 X10^3/uL; Basophil% 0.8 % (0-1); Eosinophil# 0.54 X10^3/uL; Eosinophils% 6.3 % (0-5); Erythrocyte Sedimentation Rate 5 mm/hr (0-20); Hematocrit 44.8 % (40-54); Hemoglobin 14.3 g/dL (13.0-16.5); Lymphocyte # 1.42 X10^3/ul (4.0); Lymphocyte % 16.7 % (19-41); Mean Corp Hgb Conc 31.9 g/dL (32-36); Mean Corpuscular Hgb 27.7 pg (27.0-32.0); Mean Corpuscular Volume 86.8 fL (80-94); Mean Platelet Vol. 10.8 fl (6.2-12.0); Monocyte# 0.79 X10^3/uL; Monocyte% 9.3 % (0-10); NRBC Flagged by Analyzer 0 % (0-5); Neutrophil # 5.64 X10^3/uL (2.7-7.7); Neutrophil % 66.3 % (47-70); Platelet Count 249 K/mm3 (150-450); RBC Distribution Width CV 14.1 % (11.6-14.6); RBC Distribution Width SD 44.7 fl (35.1-43.9); Red Blood Count 5.16 M/mm3 (4.6-6.2); White Blood Count 8.5 K/mm3 (4.4-11.0)
[2020-05-21 12:30] LABS: CRP < 2.90 mg/L (0.0-3.0)
== END | disposition home or self-care (01) ==
PROVIDERS: PCP Family Medicine; Referring Provider Ophthalmology; Visit Provider Ophthalmology
DX: H47.011 Ischemic optic neuropathy, right eye (principal)
CPT/HCPCS: 36415; 85025; 85652; 86140

== ENCOUNTER → 2020-05-28 09:30 | Outpatient (CLI) | payer OTHER, SELFPAY ==
--- NOTE | 2020-05-28 10:00 | MRI_ITS ---
STUDY: MRI BRAIN WITH AND WITHOUT CONTRAST REASON FOR EXAM: Male, 64 years old. Optic neuritis RIGHT eye x 6 months TECHNIQUE: Standardized multiplanar fat and water weighted pulse sequences were obtained. 19ml Dotarem via iv was administered for the contrast portion of the examination. COMPARISON: None. FINDINGS: Normal size of the ventricles and extra-axial spaces for the patient''s age. Normal white matter tracts of the supratentorial brain. There is no evidence for recent intracranial ischemia or other cause of cytotoxic edema on diffusion weighted imaging (DWI). Normal T2* images of the brain without demonstrated susceptibility artifact. There is no demonstrated hemosiderin stain. Normal bilateral basal ganglia. Normal thalami. There is no extra-axial fluid accumulation. Normal flow voids within the major intracranial circulation suggesting patency by spin echo criteria. Normal venous enhancement. There is no enhancing intra-axial or extra-axial abnormality. Normal sella turcica, pituitary gland, infundibular stalk, optic chiasm and hypothalamus. Normal tectal plate and pineal gland. Normal midbrain, andres and medulla. Normal cerebellum. Normal basal cisterns. Normal bilateral temporal bones. Normal bilateral internal auditory canals. There are bilateral ocular lens implants with otherwise normal intraorbital contents. Normal visualized paranasal sinuses. Normal calvarium and skull base. Normal visualized soft tissue structures. Normal visualized upper cervical spine. MRI/Brain W/WO Contrast IMPRESSION: Normal unenhanced and enhanced MRI of the brain. Electronically Signed: Archie Oneil MD at 12:41 EDT Tel , Service support ,
== END ==
PROVIDERS: PCP Family Medicine; Referring Provider Ophthalmology; Visit Provider Ophthalmology
DX: H47.011 Ischemic optic neuropathy, right eye (principal)
CPT/HCPCS: 70553; A9575

== ENCOUNTER → 2020-05-30 | Outpatient (CLI) | payer OTHER, SELFPAY ==
[2020-06-05 03:07] LABS: B. henselae IgG Negative titer (Neg:<1:320); B. henselae IgM Negative titer (Neg:<1:100); B. quintana IgG Negative titer (Neg:<1:320); Lyme IgG P18 Ab Absent (.); Lyme IgG P23 Ab Absent (.); Lyme IgG P28 Ab Absent (.); Lyme IgG P30 Ab Absent (.); Lyme IgG P39 Ab Absent (.); Lyme IgG P41 Ab Absent (.); Lyme IgG P45 Ab Absent (.); Lyme IgG P58 Ab Absent (.); Lyme IgG P66 Ab Absent (.); Lyme IgG P93 Ab Absent (.); Lyme IgM P23 Ab Absent (.); Lyme IgM P39 Ab Absent (.); Lyme IgM P41 Ab Absent (.)
[2020-06-05 06:10] LABS: Angiotensin Convert Enzyme < 15 U/L (14-82); B. quintana IgM Negative titer (Neg:<1:100); Lyme IgG WB Interpretation Negative (.); Lyme IgM WB Interpretation Negative (.)
== END | disposition home or self-care (01) ==
LOC: MTLAB 12:15
PROVIDERS: PCP Family Medicine; Referring Provider Family Medicine; Visit Provider Family Medicine
DX: H46.9 Unspecified optic neuritis (principal); H54.7 Unspecified visual loss
CPT/HCPCS: 36415; 82164; 86611; 86617

== ENCOUNTER → 2020-06-10 | Outpatient (CLI) | payer OTHER, SELFPAY ==
[2020-06-10 10:21] LABS: AST(SGOT) 15 U/L (15-37); Alanine Aminotransfer ALT/SGPT 35 U/L (16-61); Alkaline Phosphatase 64 U/L (45-117); Anion Gap 4 (5-15); BUN 18 mg/dL (7-18); BUN/Creat Ratio 18.8 RATIO (10-20); Bilirubin, Direct 0.16 mg/dL (0.00-0.30); Calcium,Total 8.5 mg/dL (8.5-10.1); Chloride 110 mmol/L (98-107); Cholesterol 130 mg/dL (200); Creatinine, Serum 0.96 mg/dL (0.70-1.30); EST Glomerular Filtration Rate 84 mL/min (>60); Est Glom Filt Rate - Afr Amer 102 mL/min (>60); Globulin 3.1 g/dL (2.2-4.2); Glucose 96 mg/dL (74-106); High Density Lipoprotein 39 mg/dL; Protein, Total 7.1 g/dL (6.4-8.2); Sodium Level 141 mmol/L (136-145); Triglycerides 115 mg/dL; Very Low Density Lipoprotein 23 mg/dL (5-40)
[2020-06-10 10:28] LABS: Microalbumin:Creatinine Ratio 4.2 mg/g CRE (<30 mg/g CRE)
== END | disposition home or self-care (01) ==
LOC: MTLAB 07:26
PROVIDERS: PCP Family Medicine; Referring Provider Family Medicine; Visit Provider Family Medicine
DX: E11.65 Type 2 diabetes mellitus with hyperglycemia (principal)
CPT/HCPCS: 36415; 80048; 80061; 80076; 82043; 82570

== ENCOUNTER → 2020-06-12 11:18 | Outpatient (CLI) | payer OTHER, SELFPAY ==
[2020-06-12 16:05] LABS: Vitamin B12 473 pg/mL (211-911)
== END ==
PROVIDERS: PCP Family Medicine; Referring Provider Family Medicine; Visit Provider Family Medicine
DX: M79.10 Myalgia, unspecified site (principal)
CPT/HCPCS: 82607

== ENCOUNTER 2020-08-30 08:00 | Outpatient (RCR) | payer OTHER, SELFPAY ==
--- NOTE | 2020-06-19 09:15 | HP.PTEVAL_ITS ---
Patient's Visit Information ELDER SIMPSON is a 64 year old M referred to Physical Therapy by Dr. Fela Adam MD with a diagnosis of RIGHT SHOULDER PAIN. Date of Evaluation: 06/19/20 Physical Therapist: Doug Banks PT, Cert MDT, OCS - Visit Plan Frequency: 2x /Week Duration: 4 Weeks Plan: PT INTERVENTIONS RTC/SCAPULAR STRENGTHENING,POSTURAL EX'S MODALTIES - Subjective This 64 y/o male presnets to physical therapy with right shoulder pain. This patient has shoulder pain for about 1 year no predisosing factor or reason. Patient seen seen DR 2months ago for physical . Patient location of pain right AC lateral. Aggraveting AM,raising arm OH ,to sided ,activities above 90. Symptoms worse as do more during the day. Lifting with biceps no pain. Allevating factors . No x-rays. Denies parathesia/tingling. Symptoms affects ADL's ,housework tasks. Symptoms affects QOL. SOCAIL: . VOCATION: retired - Pain Right Shoulder Pain Intensity (Out of 10): 8 Pain Intensity Range: 10 Comment: worse - Objective POSTURE: rounded shoulders. NEURO: denies parathesia/tingling. PALPATION: unremarkable. AROM: flexion 160 degrees,150 degrees pain with OP,ER 90 degrees,IR L1. MMT: RTC 4/5 supraspinatous 4-/5 pain,deltoid 4-/5 pain - Special Tests R Shoulder External Rotation Lag Test - RC Tear: Negative R Shoulder Supine Impingement Test - RC Tear: Negative R Shoulder Lift Off Test - Subscapular Tear: Negative R Shoulder Drop Sign - IS Test: Negative R Shoulder Empty Can - SS: Positive R Shoulder Belly Press - SupScap: Negative R Shoulder Neer - Impingement: Positive R Shoulder Corado Neville - Impingement: Positive R Shoulder AC Resisted - AC: Negative - Goals Goal 1:: Patient I with HEP Goal Time Frame: 4-6 Weeks Goal 2:: Patient decrease right shoulder pain by 50 % or > to improve function and QOL Goal Time Frame: 4-6 Weeks Goal 3:: Patient to increase strength right shoulder 4+/5 to improve function Goal Time Frame: 4-6 Weeks Goal 4:: Patient be able to perform ADL'S and housework tasks above 90 degrees with ERP for function Goal Time Frame: 4-6 Weeks Goal 5:: Patient to improve quick dash by 5 points or > to improve QOL. Goal Time Frame: 4-6 Weeks - Rehabilitation Potential Physical Therapy Diagnosis: This patient has right shoulder pain possible to due impingement with tendonesis with pain ,ROM with pain active, weakness and + impingement signs impairs ADLS' and housework tasks above 90 degrees Rehabilitation Potential: Good - Anticipated Interventions Patient/Client Instruction: Educate patient on: Condition, Plan of Care For the Purpose of:: To decrease pain, To increase ROM, To improve muscle performance and motor function, To increase tolerance to activity/condition/position, To improve ability of physical actions for home/community/work/leisure, To improve health of tissue, To decrease soft tissue restriction, To increase flexibility/ROM, To reduce risk of recurrence, To improve ability to perform tasks related to life management Therapeutic Exercise to Include: Strength training, Postural training, Flexibilty training, Passive ROM, Active ROM, Scapular Strength/Stabilization For the Purpose of:: To decrease pain, To increase ROM, To improve muscle performance and motor function, To improve ability to perform ADL's, To increase tolerance to activity/condition/position, To improve ability of physical actions for home/community/work/leisure, To improve health of tissue, To decrease soft tissue restriction, To increase flexibility/ROM TENS: Yes IF ES: Yes Cryotherapy (ice pack, ice massage): Yes Thermo therapy (hot pack): Yes Ultrasound (thermal/non thermal): Yes For the Purpose of:: To decrease pain, To increase ROM, To improve nutrient delivery to tissue, To increase oxygenation perfusion, To improve health of tissue, To decrease soft tissue restriction Thank you for the opportunity to evaluate your patient. For Medicare and Medicare HMO plans, please review the plan of care and approve it. It will need to be FAXED BACK to us at [phone] for Medicare purposes. For Medicare only, by signing this I certify the plan of care. Please let me know if there are questions or concerns regarding this plan of care. Physician Signature: Date:
--- NOTE | 2020-10-23 10:15 | HP.PT.NRP ---
ELDER SIMPSON was seen in my office for initial evaluation on 06/19/20. The following Plan of Care was established for this patient: Initial Frequency: 2x /Week Initial Duration: 4 Weeks Patient/Client Instruction: Educate patient on: Condition, Plan of Care For the Purpose of:: To decrease pain, To increase ROM, To improve muscle performance and motor function, To increase tolerance to activity/condition/position, To improve ability of physical actions for home/community/work/leisure, To improve health of tissue, To decrease soft tissue restriction, To increase flexibility/ROM, To reduce risk of recurrence, To improve ability to perform tasks related to life management Therapeutic Exercise to Include: Strength training, Postural training, Flexibilty training, Passive ROM, Active ROM, Scapular Strength/Stabilization For the Purpose of:: To decrease pain, To increase ROM, To improve muscle performance and motor function, To improve ability to perform ADL's, To increase tolerance to activity/condition/position, To improve ability of physical actions for home/community/work/leisure, To improve health of tissue, To decrease soft tissue restriction, To increase flexibility/ROM TENS: Yes IF ES: Yes Cryotherapy (ice pack, ice massage): Yes Thermo therapy (hot pack): Yes Ultrasound (thermal/non thermal): Yes For the Purpose of:: To decrease pain, To increase ROM, To improve nutrient delivery to tissue, To increase oxygenation perfusion, To improve health of tissue, To decrease soft tissue restriction This patient was last seen in our office . Pertinent comments regarding their Physical therapy will appear below: Patient seen for PT for left shoulder pain for HEP for RTC/SCAPULAR and postural strengthening thus is d/c At this point I will be discontinuing this patient from physical therapy. I would be happy to see this patient again in the future if found appropriate by the physician. Thank you! Doug Banks, PT, Cert MDT, OCS
== END 2020-08-30 19:00 | disposition home or self-care (01) ==
LOC: PT 08:00
PROVIDERS: PCP Family Medicine; Referring Provider Family Medicine; Visit Provider Family Medicine
DX: M25.511 Pain in right shoulder (principal)
CPT/HCPCS: 97014; 97035; 97110; 97161; G0283

== ENCOUNTER 2020-12-04 09:30 | Outpatient (RCR) | payer OTHER, SELFPAY ==
[2020-07-17 13:16] VITALS: BMI 33.1
--- NOTE | 2020-11-26 12:39 | HP.PTEVAL ---
Patient's Visit Information ELDER SIMPSON is a 65 year old M referred to Physical Therapy by Dr. Fela Adam MD with a diagnosis of Balance issues. Date of Evaluation: 11/26/20 Physical Therapist: Augusto Jeffries DPT, OCS, CSCS - Visit Plan Frequency: 1-2x /Week Duration: 4-6 Weeks Plan: Neurocom balance assessment then -12x/week for 4 weeks for teaching balance ex liekly for FW weight shift, visual and vestibular balance ex, general circulatory ex feet and legs. Pt to decide b/w 1x/weeka nd 2x/week. - Subjective Balance is getting worse. Weavies around all the time. Sometimes loses balance in stance. Worse at times. Feels fine sitting. No spinning. No falls but has been close. No AD yet. Pain in feet at times most of time, Needs to wear shoes and socks constantly. Up to 7/10 with lots of activity. Working in yard can make him worse. sleep is interrupted due to foot and hand pain. Type 2 Diabetic neuropathy. Retired. Spends day doing house work and yard work. Enjoys hunting and shooting but needs to sit down to shoot, not a walker. No regular exercises. [ End ] - Pain feet pain Pain Intensity (Out of 10): 0 Pain Intensity Range: 0, 4 - Objective Walks slow but steady on frim flat surface. Avoids FW weight shift. Can walk faster with cues easily. Trasnfers withotu UE easily. Steps are reciprocal easily with one rail, hesitant without holding onto object but able slowly. pedal pulse is palpable and cap refill in toes is 2 seconds. reflexes 2/3 patella and achilles. Sensation LE at deficti to gross light touch in feet. strength 4+/5 knees and ankles, 4/5 hip abd and ext, 4= hip flexion all B. coordination to reciprocal toe tapping is good. LE and UE aROM is WFL. VOR walking is safe but slow. - Balance Scores Functional Gait Assessment Score: 25 % Disability: 16.6700 CATSIB Score (Max score 120 seconds): 90 - Goals Goal 1:: Neurocom balance test and review with patient Goal Time Frame: 2 Weeks Goal 2:: I approp EHP to minimize future balance problems and mitigate risk. Goal Time Frame: 4-6 Weeks Goal 3:: FGA to minimze balance problems. Goal Time Frame: 4-6 Weeks Goal 4:: Pt feel 50% improved balance. Goal Time Frame: 4-6 Weeks - Rehabilitation Potential Physical Therapy Diagnosis: gait disturbance due to neuropathy. Rehabilitation Potential: Fair - Anticipated Interventions Patient/Client Instruction: Educate patient on: Condition, Plan of Care For the Purpose of:: To improve health of tissue, To improve safety with gait Therapeutic Exercise to Include: Strength training, Balance training For the Purpose of:: To decrease pain, To improve health of tissue, To improve balance, To improve safety with gait Thank you for the opportunity to evaluate your patient. For Medicare and Medicare HMO plans, please review the plan of care and approve it. It will need to be FAXED BACK to us at [phone] for Medicare purposes. For Medicare only, by signing this I certify the plan of care. Please let me know if there are questions or concerns regarding this plan of care. Physician Signature: Date:
--- NOTE | 2020-11-28 13:34 | HP.PTCOM_ITS ---
PT Communication Note 11/28/[address] Fela Adam MD , Thank you for the referral of Sherman to [facility] for balance assessment. I have enclosed a copy of the results of your review. In summation, he scored low on the vestibular and visual portions of the Sensory Organization Test. He scored low ont he forward excursion on the Limits of Sta billity Test. With these results in mind, I plan to see him for 2-3 visits to instruct in HEP to address these deficits along with some leg strength and then f/u as needed down the road. Please do not hesitate to contact me if there are questions regarding his therapy. Sincerely, Augusto Jeffries DPT, OCS, CSCS Contact Information
--- NOTE | 2021-01-29 08:16 | HP.PT.NRP ---
ELDER SIMPSON was seen in my office for initial evaluation on 11/26/20. The following Plan of Care was established for this patient: Initial Frequency: 1-2x /Week Initial Duration: 4-6 Weeks Patient/Client Instruction: Educate patient on: Condition, Plan of Care For the Purpose of:: To improve health of tissue, To improve safety with gait Therapeutic Exercise to Include: Strength training, Balance training For the Purpose of:: To decrease pain, To improve health of tissue, To improve balance, To improve safety with gait This patient was last seen in our office 12/04/20. Pertinent comments regarding their Physical therapy will appear below: Pt seen 3 visits for HEP progression. Was to f/u a month later but neglected to schedule. at this point, it has been over two months and I will discontinue due to nonattendance. At this point I will be discontinuing this patient from physical therapy. I would be happy to see this patient again in the future if found appropriate by the physician. Thank you! Augusto Jeffries, DPT, OCS, CSCS
== END 2020-12-04 19:00 | disposition home or self-care (01) ==
LOC: PT 09:30
PROVIDERS: PCP Family Medicine; Referring Provider Family Medicine; Visit Provider Family Medicine
DX: R26.89 Other abnormalities of gait and mobility (principal)
CPT/HCPCS: 97110; 97161; 97750

== ENCOUNTER → 2021-01-31 14:01 | Outpatient (CLI) | payer OTHER, SELFPAY ==
[2020-07-17 13:16] VITALS: BMI 33.1
[2021-01-31 17:51] LABS: Anion Gap 4 (5-15); BUN 20 mg/dL (7-18); BUN/Creat Ratio 18.7 RATIO (10-20); Calcium,Total 8.7 mg/dL (8.5-10.1); Chloride 104 mmol/L (98-107); Creatinine, Serum 1.07 mg/dL (0.70-1.30); EST Glomerular Filtration Rate 74 mL/min (>60); Est Glom Filt Rate - Afr Amer 89 mL/min (>60); Glucose 273 mg/dL (74-106); Potassium 4.2 mmol/L (3.5-5.1); Sodium Level 137 mmol/L (136-145); T4 Total, Thyroxin 6.1 ug/dL (4.5-12.1); Thyroid Stim Hormone (TSH) 2.83 uIU/mL (0.358-3.74)
== END ==
PROVIDERS: PCP Family Medicine; Referring Provider Family Medicine; Visit Provider Family Medicine
DX: E03.9 Hypothyroidism, unspecified (principal); E11.9 Type 2 diabetes mellitus without complications
CPT/HCPCS: 36415; 80048; 84436; 84443

== ENCOUNTER → 2021-05-16 14:11 | Outpatient (CLI) | payer OTHER, SELFPAY ==
[2020-07-17 13:16] VITALS: BMI 33.1
[2021-05-16 17:55] LABS: AST(SGOT) 23 U/L (15-37); Alanine Aminotransfer ALT/SGPT 55 U/L (16-61); Albumin, Serum 3.8 g/dL (3.2-5.0); Alkaline Phosphatase 73 U/L (45-117); Anion Gap 5 (5-15); BUN 21 mg/dL (7-18); BUN/Creat Ratio 21.1 RATIO (10-20); Calcium,Total 8.1 mg/dL (8.5-10.1); Chloride 106 mmol/L (98-107); Cholesterol 120 mg/dL (200); Creatinine, Serum 0.99 mg/dL (0.70-1.30); EST Glomerular Filtration Rate 80 mL/min (>60); Est Glom Filt Rate - Afr Amer 97 mL/min (>60); Globulin 3.3 g/dL (2.2-4.2); Glucose 268 mg/dL (74-106); High Density Lipoprotein 33 mg/dL; Potassium 4.5 mmol/L (3.5-5.1); Protein, Total 7.1 g/dL (6.4-8.2); Sodium Level 136 mmol/L (136-145); Triglycerides 144 mg/dL; Very Low Density Lipoprotein 29 mg/dL (5-40)
[2021-05-16 18:04] LABS: Microalbumin:Creatinine Ratio 6.7 mg/g CRE (<30 mg/g CRE)
== END ==
PROVIDERS: PCP Family Medicine; Referring Provider Family Medicine; Visit Provider Family Medicine
DX: E11.9 Type 2 diabetes mellitus without complications (principal)
CPT/HCPCS: 36415; 80048; 80061; 80076; 82043; 82570

== ENCOUNTER → 2021-09-15 14:08 | Outpatient (CLI) | payer OTHER, SELFPAY ==
[2021-09-15 15:40] LABS: Vitamin B12 786 pg/mL (211-911)
[2021-09-15 15:49] LABS: CRP < 2.90 mg/L (0.0-3.0); Rheumatoid Factor < 10.0 IU/mL (<15)
[2021-09-17 16:09] LABS: Albumin 3.6 g/dL (2.9-4.4); Alpha-1-Globulins 0.2 g/dL (0.0-0.4); Alpha-2-Globulins 0.7 g/dL (0.4-1.0); Cytoplasmic Ab (C-ANCA) <1:20 titer (Neg:<1:20); Gamma Globulin 0.8 g/dL (0.4-1.8); Immunoglobulin A 149 mg/dL (61-437); Immunoglobulin G 806 mg/dL (603-1613); Immunoglobulin M 80 mg/dL (20-172); PROEL- TOTAL PROTEIN 6.2 g/dL (6.0-8.5)
[2021-09-17 19:09] LABS: Perinuclear Ab (P-ANCA) <1:20 titer (Neg:<1:20)
[2021-09-17 19:36] LABS: ANTINUCLEAR ANTIBODIES DIRECT Negative (Negative)
== END ==
PROVIDERS: PCP Family Medicine; Referring Provider Psychiatry & Neurology Neurology; Visit Provider Psychiatry & Neurology Neurology
DX: M25.40 Effusion, unspecified joint (principal); M25.649 Stiffness of unspecified hand, not elsewhere classified; G62.9 Polyneuropathy, unspecified; I73.00 Raynaud's syndrome without gangrene; R26.89 Other abnormalities of gait and mobility
CPT/HCPCS: 36415; 82607; 82784; 84165; 86038; 86140; 86256; 86334; 86431

== ENCOUNTER 2021-10-21 15:56 | Outpatient (CLI) | payer OTHER, SELFPAY | END 2021-10-21 23:59 | disposition short-term general hospital (02) | PROVIDERS: PCP Family Medicine; Referring Provider Family Medicine; Visit Provider Family Medicine | DX: Z20.822 Contact with and (suspected) exposure to COVID-19 (principal) | CPT/HCPCS: 87635; U0003; U0005 ==

== ENCOUNTER 2021-12-30 14:42 | Outpatient (CLI) | payer OTHER, SELFPAY ==
--- NOTE | 2021-12-30 14:47 | RAD_ITS ---
STUDY: X-RAY - LUMBAR SPINE REASON FOR EXAM: Male, 66 years old. Back pain LUMBAR STRAINLBP, bilateral leg pain NKI, chronic pain TECHNIQUE: XR Spine Lumbar Comp W/ Bending Min 6 Views COMPARISON: None FINDINGS: Normal lumbar lordosis. There is no substantial scoliosis. There is a normal alignment of the vertebrae. There is multilevel endplate spondylosis of the lumbar vertebrae. There is multi-level degenerative disc disease with multi-level disc space narrowing. There are atherosclerotic vascular calcifications. Vacuum disc phenomenon at L5-S1. The soft tissue structures are unremarkable. RAD/L/S Spine Comp/w Bending Views IMPRESSION: Degenerative changes of the spine, as detailed above. MRI can better evaluate. Electronically Signed: Holger Longo MD at 15:50 EDT ,
== END 2021-12-30 23:59 | disposition home or self-care (01) ==
PROVIDERS: PCP Family Medicine; Referring Provider Nurse Practitioner Family; Visit Provider Nurse Practitioner Family
DX: M54.17 Radiculopathy, lumbosacral region (principal)
CPT/HCPCS: 72114